=== PATIENT | female | born 1955 | race Caucasian/White ===

== ENCOUNTER 2016-09-24 11:06 | Emergency (ER) | payer MEDICAID ==
[2016-09-24] MEDS ORDERED: Ondansetron 4 MG Tab.DIS PO ONE (12:07)
[2016-09-24] MEDS ORDERED: Ibuprofen 200 MG Tab, 24 Tab Bulk Bottle PO STA (12:09)
--- NOTE | 2016-09-24 12:09 | EDM.PDOC ---
ED HPI GENERAL MEDICAL PROBLEM - General Chief Complaint: Genitourinary Problem Stated Complaint: FEVER/PAIN WITH URINATION Time Seen by Provider: 09/24/16 12:02 Source of Information: Reports: Patient, Family, RN Notes Reviewed History Limitations: Reports: No Limitations - History of Present Illness INITIAL COMMENTS - FREE TEXT/NARRATIVE: 61-year-old female presents emergency department day complaint of nausea and dysuria, she's also developed fever does have a history of urinary tract infection does complain of dysuria as well last urinary tract infection was several months ago, she states this feels a bit worse than prior UTIs Pelvic Pain Score (Numeric/FACES): 4 - Related Data Allergies Allergy/AdvReac Type Severity Reaction Status Date / Time aspirin Allergy Facial Verified 09/24/16 12:38 Swelling Home Meds: Home Meds . 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: Endometriosis Musculoskeletal History: Reports: Osteoporosis Endocrine/Metabolic History: Reports: Diabetes, Type II, Multinodular Thyroid, Obesity/BMI 30+ - Past Surgical History HEENT Surgical History: Reports: Tonsillectomy Cardiovascular Surgical History: Reports: Coronary Artery Bypass, Percutaneous Transluminal Angioplasty Other Cardiovascular Surgeries/Procedures: cabg x4 2014 GI Surgical History: Reports: Appendectomy, Cholecystectomy Female Surgical History: Reports: Hysterectomy, Lithotripsy/ESWL, Salpingo- Oophorectomy Social & Family History - Tobacco Use Smoking Status *Q: Never Smoker - Caffeine Use Caffeine Use: Reports: Coffee Caffeine Use Comment: 1 cup - Recreational Drug Use Recreational Drug Use: No ED ROS GENERAL - Review of Systems Review Of Systems: See Below Constitutional: Reports: Fever, Chills HEENT: Reports: No Symptoms Respiratory: Reports: No Symptoms Cardiovascular: Reports: No Symptoms GI/Abdominal: Reports: Nausea. Denies: Vomiting : Reports: Dysuria, Frequency. Denies: Flank Pain Musculoskeletal: Reports: No Symptoms ED EXAM, GI/ABD - Physical Exam Exam: See Below Exam Limited By: No Limitations General Appearance: Alert, Mild Distress Respiratory/Chest: No Respiratory Distress GI/Abdominal: Soft, Non-Tender Back Exam: No: CVA Tenderness (R), CVA Tenderness (L) Course - Vital Signs Last Recorded V/S: Last Vital Signs Temp 101.8 F H 09/24/16 13:26 Pulse 102 H 09/24/16 13:26 Resp 18 09/24/16 13:26 BP 134/81 09/24/16 13:26 Pulse Ox 93 L 09/24/16 13:26 - Orders/Labs/Meds Orders: Active Orders 24 hr Category Date Time Status Levofloxacin/Dextrose 5%-Water [Levaquin in D5W 750 MG/ Med 09/24/16 13:15 Active 150 ML] 750 mg Premix Bag 1 bag IV Q24H Medication Orders Levofloxacin/Dextrose 750 mg/ (Premix) 150 mls @ 100 mls/hr IV Q24H RODDY Last Admin: 09/24/16 13:20 Dose: 100 mls/hr Labs: Laboratory Tests 09/24/16 09/24/16 09/24/16 Range/Units 11:31 12:07 12:07 WBC 16.3 H (4.5-11.0) K/uL RBC 4.94 (3.30-5.50) M/uL Hgb 15.6 H (12.0-15.0) g/dL Hct 45.3 (36.0-48.0) % MCV 92 (80-98) fL MCH 32 H (27-31) pg MCHC 34 (32-36) % Plt Count 240 (150-400) K/uL Neut % (Auto) 76 H (36-66) % Lymph % (Auto) 12 L (24-44) % [place] % (Auto) 11 H (2-6) % Eos % (Auto) 0 L (2-4) % Baso % (Auto) 1 (0-1) % Sodium 139 L (140-148) mmol/L Potassium 4.4 (3.6-5.2) mmol/L Chloride 102 (100-108) mmol/L Carbon Dioxide 26 (21-32) mmol/L Anion Gap 15.4 H (5.0-14.0) mmol/L BUN 19 H (7-18) mg/dL Creatinine 1.3 H (0.6-1.0) mg/dL Est Cr Clr Drug Dosing 35.03 mL/min Estimated GFR (MDRD) 41 L (>60) Glucose 165 H (74-106) mg/dL Lactic Acid (0.4-2.0) mmol/L Calcium 9.6 (8.5-10.1) mg/dL Total Bilirubin 1.1 H (0.2-1.0) mg/dL AST 41 H (15-37) U/L ALT 71 (12-78) U/L Alkaline Phosphatase 81 (46-116) U/L C-Reactive Protein 3.32 H (0.0-0.3) mg/dL Total Protein 8.1 (6.4-8.2) g/dL Albumin 3.8 (3.4-5.0) g/dL Globulin 4.3 H (2.3-3.5) g/dL Albumin/Globulin Ratio 0.9 L (1.2-2.2) Urine Color Yellow Urine Appearance Cloudy Urine pH 7.0 (4.5-8.0) Ur Specific [place] 1.005 L (1.008-1.030) Urine Protein Trace (NEGATIVE) mg/dL Urine Glucose (UA) Normal (NEGATIVE) mg/dL Urine Ketones Negative (NEGATIVE) mg/dL Urine Occult Blood Large (NEGATIVE) Urine Nitrite Negative (NEGATIVE) Urine Bilirubin Negative (NEGATIVE) Urine Urobilinogen 1 (NORMAL) mg/dL Ur Leukocyte Esterase Large (NEGATIVE) Urine RBC 10-20 H (0-5) Urine WBC Packed H (0-5) Ur Epithelial Cells Few Amorphous Sediment Not seen Urine Bacteria Many Urine Mucus Not seen 09/24/16 Range/Units 12:07 WBC (4.5-11.0) K/uL RBC (3.30-5.50) M/uL Hgb (12.0-15.0) g/dL Hct (36.0-48.0) % MCV (80-98) fL MCH (27-31) pg MCHC (32-36) % Plt Count (150-400) K/uL Neut % (Auto) (36-66) % Lymph % (Auto) (24-44) % [place] % (Auto) (2-6) % Eos % (Auto) (2-4) % Baso % (Auto) (0-1) % Sodium (140-148) mmol/L Potassium (3.6-5.2) mmol/L Chloride (100-108) mmol/L Carbon Dioxide (21-32) mmol/L Anion Gap (5.0-14.0) mmol/L BUN (7-18) mg/dL Creatinine (0.6-1.0) mg/dL Est Cr Clr Drug Dosing mL/min Estimated GFR (MDRD) (>60) Glucose (74-106) mg/dL Lactic Acid 2.7 H (0.4-2.0) mmol/L Calcium (8.5-10.1) mg/dL Total Bilirubin (0.2-1.0) mg/dL AST (15-37) U/L ALT (12-78) U/L Alkaline Phosphatase (46-116) U/L C-Reactive Protein (0.0-0.3) mg/dL Total Protein (6.4-8.2) g/dL Albumin (3.4-5.0) g/dL Globulin (2.3-3.5) g/dL Albumin/Globulin Ratio (1.2-2.2) Urine Color Urine Appearance Urine pH (4.5-8.0) Ur Specific [place] (1.008-1.030) Urine Protein (NEGATIVE) mg/dL Urine Glucose (UA) (NEGATIVE) mg/dL Urine Ketones (NEGATIVE) mg/dL Urine Occult Blood (NEGATIVE) Urine Nitrite (NEGATIVE) Urine Bilirubin (NEGATIVE) Urine Urobilinogen (NORMAL) mg/dL Ur Leukocyte Esterase (NEGATIVE) Urine RBC (0-5) Urine WBC (0-5) Ur Epithelial Cells Amorphous Sediment Urine Bacteria Urine Mucus Meds: Medications Generic Name Dose Route Start Last Admin Trade Name Freq PRN Reason Stop Dose Admin Levofloxacin/Dextrose 750 mg/ 150 mls @ 100 mls/hr 09/24/16 13:15 09/24/16 13 :20 Premix IV 100 mls/hr Q24H RODDY Administration Discontinued Medications Generic Name Dose Route Start Last Admin Trade Name Freq PRN Reason Stop Dose Admin Ibuprofen 600 mg 09/24/16 12:09 Motrin Bulk Bottle PO 09/24/16 12:10 NOW STA Ibuprofen Confirm 09/24/16 12:32 Motrin Administered 09/24/16 12:33 Dose 600 mg .ROUTE .STK-MED ONE Ibuprofen 600 mg 09/24/16 12:34 09/24/16 12:36 Motrin PO 09/24/16 12:35 600 mg ONETIME ONE Administration Ondansetron HCl 4 mg 09/24/16 12:07 09/24/16 12:35 Zofran Odt PO 09/24/16 12:08 4 mg ONETIME ONE Administration Departure - Departure Time of Disposition: 14:14 Disposition: Home, Self-Care 01 Condition: Good Clinical Impression: UTI, Urinary tract infectious disease - Discharge Information Forms: ED Department Discharge Additional Instructions: Take full course of antibiotics, use Tylenol or Motrin to help control fever symptoms, Please followup with your primary care provider in 3-5 days if not better, please call return to the emergency department with worsening of symptoms. - My Orders Last 24 Hours: My Active Orders 09/24/16 13:15 Levofloxacin/Dextrose 5%-Water [Levaquin in D5W 750 MG/150 ML] 750 mg Premix Bag 1 bag IV Q24H - Assessment/Plan Last 24 Hours: My Active Orders 09/24/16 13:15 Levofloxacin/Dextrose 5%-Water [Levaquin in D5W 750 MG/150 ML] 750 mg Premix Bag 1 bag IV Q24H Plan: Assessment Acuity = acute Site and laterality = urinary tract infection concern for development of urosepsis Etiology = bacterial cause Manifestations = fever Location of injury = Home Lab values = WBC elevated at 16.3 consistent leukocytosis neutrophils at 76% sodium low at 139 consistent hyponatremia creatinine elevated at 1.3 consistent with acute renal failure stage G IIIB lactic acid elevated at 2.7 consistent lactic acidosis bilirubin mildly elevated 1.1 consistent hyperbilirubinemia C- reactive protein elevated 3.3 to urinalysis reveals 10-20 rbc's consistent hematuria and packed WBCs consistent with pyuria Plan I did review blood work with her elected to do IV dose of Levaquin initially followed by 10 days of Levaquin by mouth I talked her about hospital admission but she declined have her follow-up with her primary care provider upon return home if not better Patient was in agreement with the plan all questions were answered, they were instructed to return to the emergency department or call for worsening symptoms. This note was dictated using [employer] voice recognition software please call with any questions.
[2016-09-24] MEDS ORDERED: Ibuprofen 600 MG Tab ONE (12:32)
[2016-09-24] MEDS ORDERED: Ibuprofen 600 MG Tab PO ONE (12:34)
[2016-09-24] MEDS ORDERED: Levofloxacin/Dextrose 5%-Water 750 MG in Premix Bag 1 BAG IV SCH (13:15)
[2016-09-24 13:28] VITALS: BP 134/81
== END 2016-09-24 14:46 | disposition home or self-care (01) ==
LOC: JP.ED 11:06
DX: N39.0 Urinary tract infection, site not specified (principal); M19.90 Unspecified osteoarthritis, unspecified site; E11.9 Type 2 diabetes mellitus without complications; E66.9 Obesity, unspecified; Z88.6 Allergy status to analgesic agent; Z87.442 Personal history of urinary calculi; Z87.440 Personal history of urinary (tract) infections; Z95.1 Presence of aortocoronary bypass graft; Z98.890 Other specified postprocedural states; Z90.710 Acquired absence of both cervix and uterus; Z68.35 Body mass index [BMI] 35.0-35.9, adult
CPT/HCPCS: 36415; 80053; 81001; 83605; 85025; 86140; 96365; 96366; 99284; A9270; J1956

== ENCOUNTER 2016-09-25 13:15 | Inpatient (IN) | payer MEDICAID ==
[2016-09-25] MEDS ORDERED: Sodium Chloride 0.9% 10 ML Syringe FLUSH PRN (14:29)
[2016-09-25] MEDS ORDERED: Ketorolac 30 MG/ML SDV IVPUSH ONE (14:30)
[2016-09-25] MEDS ORDERED: Sodium Chloride 0.9% 1,000 ML IV SCH (14:30)
[2016-09-25] MEDS ORDERED: Acetaminophen 500 MG Tab PO ONE (14:31)
[2016-09-25] MEDS ORDERED: Piperacillin/Tazobactam 3.375 GM in Sodium Chloride 0.9% 50 ML IV ONE (14:34)
[2016-09-25] MEDS ORDERED: Piperacillin/Tazobactam/Dext 3.375 GM in Premix Bag 1 BAG IV ONE (14:45)
[2016-09-25] MEDS ORDERED: Ondansetron 4 MG/2 ML SDV IVPUSH ONE (14:58)
[2016-09-25] MEDS ORDERED: Acetaminophen 650 MG Supp RECTAL ONE (15:00)
[2016-09-25] MEDS ORDERED: Lactated Ringers 1,000 ML IV SCH (15:15)
--- NOTE | 2016-09-25 15:49 | PCM.HP ---
H&P History of Present Illness - General Date of Service: 09/25/16 Admit Problem/Dx: Admission Diagnosis/Problem Admission Diagnosis/Problem Acute cystitis Source of Information: Patient, Family, Provider History Limitations: Reports: No Limitations - History of Present Illness Initial Comments - Free Text/Narative: Drea presents to the emergency room today with ongoing dysuria as well as some lower abdominal pain. This mild lower abdominal pain has been present for approximately 2 weeks but has become progressively worse. Pain is achy and crampy in nature and radiates throughout her lower abdomen. Pain seems to come and go in waves with no obvious trigger. Acetaminophen has not provided much help to reduce the pain. She had noticed shaking chills at home as well as subjective fevers but had not had episodes of diaphoresis prior to being seen in the emergency room today. She was seen yesterday and given a dose of IV antibiotics before being discharged home per her request. She does not report chest pain or shortness of breath. She does endorse headache. She does not have an appetite or much energy and has not had much to eat or drink. She has had significant nausea. Workup in the emergency room revealed evidence for ongoing urinary tract infection with sepsis. She has received antibiotics and a 30 mL/kg bolus. She will be admitted to the intensive care unit. - Related Data Allergies/Adverse Reactions: Allergies Allergy/AdvReac Type Severity Reaction Status Date / Time aspirin Allergy Facial Verified 09/24/16 12:38 Swelling Home Medications: Home Meds Clopidogrel [Plavix] 75 mg PO DAILY 09/25/16 [History] Metoprolol Tartrate 25 mg PO BID 09/25/16 [History] Pravastatin [Pravachol] 10 mg PO DAILY 09/25/16 [History] glipiZIDE [Glucotrol] 5 mg PO DAILY 09/25/16 [History] metFORMIN HCl [Metformin HCl] 500 mg PO BID 09/25/16 [History] Past Medical History Cardiovascular History: Reports: CAD, High Cholesterol, Hypertension Gastrointestinal History: Reports: Cholelithiasis Genitourinary History: Reports: Renal Calculus, UTI, Recurrent 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: Endometriosis Musculoskeletal History: Reports: Osteoporosis Endocrine/Metabolic History: Reports: Diabetes, Type II, Multinodular Thyroid, Obesity/BMI 30+ - Infectious Disease History Infectious Disease History: Reports: Chicken Pox, Measles, Mumps - Past Surgical History HEENT Surgical History: Reports: Tonsillectomy Cardiovascular Surgical History: Reports: Coronary Artery Bypass, Percutaneous Transluminal Angioplasty Other Cardiovascular Surgeries/Procedures: cabg x4 2015 GI Surgical History: Reports: Appendectomy, Cholecystectomy Female Surgical History: Reports: Hysterectomy, Lithotripsy/ESWL, Salpingo- Oophorectomy Social & Family History - Family History Endocrine/Metabolic: Denies: Diabetes, type II - Tobacco Use Smoking Status *Q: Never Smoker - Caffeine Use Caffeine Use: Reports: Coffee Caffeine Use Comment: 1 cup - Alcohol Use Alcohol Use History: Yes Days Per Week of Alcohol Use: 1 - Recreational Drug Use Recreational Drug Use: No H&P Review of Systems - Review of Systems: Review Of Systems: See Below Free Text/Narrative: A complete 12 point review of systems was obtained. Pertinent positives and negatives are noted in the history of present illness. All other systems were reviewed and were negative except as noted. Exam - Exam Exam: See Below - Vital Signs Vital Signs: Last Vital Signs Temp 40.9 C H 09/25/16 14:34 Pulse 130 H 09/25/16 14:34 Resp 28 H 09/25/16 14:34 BP 186/51 H 09/25/16 14:34 Pulse Ox 96 09/25/16 14:34 Weight: 87.8 kg - Exam Quality Assessment: No: Supplemental Oxygen General: Alert, Oriented, Cooperative, Mild Distress, Other (diaphoretic) HEENT: Conjunctiva Clear. No: Mucosa Moist & [place] (dry), Scleral Icterus Neck: Supple, Trachea Midline. No: Thyromegaly Lungs: Clear to Auscultation, Normal Respiratory Effort Cardiovascular: Regular Rhythm, Tachycardia, Systolic Murmur Abdomen: Normal Bowel Sounds, Soft, Tenderness (mild suprapubic). No: Distention Back Exam: Normal Inspection, Full Range of Motion Extremities: Normal Inspection, Normal Pulses. No: Cyanosis, Edema Skin: Warm, Moist. No: Rash Neuro Extensive - Mental Status: Alert, Oriented x3, Nl Response to Commands Neuro Extensive - Motor, Sensory, Reflexes: CN II-XII Intact. No: Dysarthria, Abnormal Motor, Tremor Psychiatric: Alert, Normal Affect - Patient Data Lab Results Last 24 hrs: Laboratory Results - last 24 hr 09/25/16 Range/Units 15:10 WBC 5.9 (4.5-11.0) K/uL RBC 4.97 (3.30-5.50) M/uL Hgb 16.1 H (12.0-15.0) g/dL Hct 45.5 (36.0-48.0) % MCV 92 (80-98) fL MCH 32 H (27-31) pg MCHC 35 (32-36) % Plt Count 168 (150-400) K/uL Neut % (Auto) 71 H (36-66) % Lymph % (Auto) 25 (24-44) % [place] % (Auto) 2 (2-6) % Eos % (Auto) 1 L (2-4) % Baso % (Auto) 1 (0-1) % Result Diagrams: 09/25/16 15:10 09/25/16 15:11 *Q Meaningful Use (ADM) - VTE *Q VTE Criteria *Q: - VTE Risk Assess *Q Each Risk Factor Represents 1 Point: Obesity (BMI greater than 30), Sepsis, Less than 1 Month Total Score 1 Point Risk Factors: 2 Each Risk Factor Represents 2 Points: Age 60 - 74 Years Total Score 2 Point Risk Factors: 2 Each Risk Factor Represents 3 Points: None Total Score 3 Point Risk Factors: 0 Each Risk Factor Represents 5 Points: None Total Score 5 Point Risk Factors: 0 Venous Thromboembolism Risk Factor Score *Q: 4 - Stroke *Q Stroke Criteria *Q: - AMI *Q AMI Criteria *Q: - Problem List (1) Acute cystitis SNOMED Code(s): 28967442 ICD Code: N30.00 - ACUTE CYSTITIS WITHOUT HEMATURIA Status: Acute Current Visit: Yes Qualifiers: Hematuria presence: without hematuria Qualified Code(s): N30.00 - Acute cystitis without hematuria (2) Sepsis SNOMED Code(s): 42258199 ICD Code: A41.9 - SEPSIS, UNSPECIFIED ORGANISM Status: Acute Current Visit: Yes Qualifiers: Sepsis type: sepsis due to unspecified organism Qualified Code(s): A41.9 - Sepsis, unspecified organism (3) Type II diabetes mellitus SNOMED Code(s): 55833706 ICD Code: E11.9 - TYPE 2 DIABETES MELLITUS WITHOUT COMPLICATIONS Status: Chronic Current Visit: Yes Qualifiers: Diabetes mellitus complication status: with unspecified complications Diabetes mellitus jail insulin use: without jail use Qualified Code( s): E11.8 - Type 2 diabetes mellitus with unspecified complications (4) Acute kidney injury SNOMED Code(s): 67998311 ICD Code: N17.9 - ACUTE KIDNEY FAILURE, UNSPECIFIED Status: Acute Current Visit: Yes Problem List Initiated/Reviewed/Updated: Yes Orders Last 24hrs: Active Orders 24 hr Category Date Time Status Patient Status Manage Transfer [TRANSFER] Routine ADT 09/25/16 15:37 Ordered BASIC METABOLIC PANEL,BMP [CHEM] Urgent Lab 09/25/16 14:23 Ordered CULTURE BLOOD [BC] Urgent Lab 09/25/16 14:50 Received CULTURE BLOOD [BC] Urgent Lab 09/25/16 15:04 Received LACTIC ACID [CHEM] Stat Lab 09/25/16 14:23 Ordered UA W/MICROSCOPIC [URIN] Urgent Lab 09/25/16 14:23 Uncollected Lactated Ringers [Ringers, Lactated] 1,000 ml Med 09/25/16 15:15 Active IV ASDIRECTED Lactated Ringers [Ringers, Lactated] 1,000 ml Med 09/25/16 15:45 Ordered IV ASDIRECTED Sodium Chloride 0.9% [Normal Saline] 1,000 ml Med 09/25/16 14:30 Active IV ASDIRECTED Sodium Chloride 0.9% [Saline Flush] Med 09/25/16 14:29 Active 10 ml FLUSH ASDIRECTED PRN Blood Culture x2 Reflex Set [OM.PC] Urgent Oth 09/25/16 14:24 Ordered Saline Lock Insert [OM.PC] Urgent Oth 09/25/16 14:28 Ordered Resuscitation Status Routine Resus Stat 09/25/16 15:38 Ordered Medication Orders Sodium Chloride (Normal Saline) 1,000 mls @ 150 mls/hr IV ASDIRECTED RODDY Last Admin: 09/25/16 14:47 Dose: 150 mls/hr Lactated Ringer's (Ringers, Lactated) 1,000 mls @ 999 mls/hr IV ASDIRECTED RODDY Last Admin: 09/25/16 15:06 Dose: 999 mls/hr Lactated Ringer's (Ringers, Lactated) 1,000 mls @ 999 mls/hr IV ASDIRECTED RODDY Stop: 09/25/16 17:46 Sodium Chloride (Saline Flush) 10 ml FLUSH ASDIRECTED PRN PRN Reason: Keep Vein Open Last Admin: 09/25/16 14:50 Dose: 10 ml Assessment/Plan Comment:: Assessment and plan - Sepsis syndrome secondary to acute cystitis - evidence for sepsis includes tachycardia, tachypnea, lactic acidosis and acute kidney injury. Ongoing evidence for urinary tract infection with significant urinalysis abnormalities and symptoms. She does have a history of recurrent infections but has not had any in some months. She does have a history of kidney stones but does not currently have symptoms to suggest active kidney stones. she has received antibiotics and a 30 mL/kg bolus of IV fluids. Cultures have been obtained. -Pip/Tazo -IV fluids -repeat lactic acid level -Follow-up urine culture -Pain and nausea control -follow-up blood cultures Acute kidney injury - secondary to sepsis. -Management as above -Labs in the morning Diabetes mellitus type 2 - on only oral medications at this time. Blood sugars controlled by history. usual medications will be held given abnormal kidney function. -Hold metformin and glipizide -Sliding-scale insulin Dssential hypertension - blood pressure normal to mildly elevated in the emergency room but I would not be surprised if her pressures decline after the initial resuscitation. Planning to hold usual medications until we see which direction her blood pressure goes. Maintenance issues - - DVT prophylaxis - mechanical - GI prophylaxis - PPI - Nutrition - diabetic diet - Lawrence catheter - not indicated CODE STATUS - full code Admission justification - This patient will be admitted for inpatient services and is medically appropriate meeting medical necessity for inpatient admission as outlined in my documentation. I reasonably expect the patient will require inpatient services that span a period time over 2 midnights. I reasonably expect this patient to be discharged or transferred within 96 hours [facility]. Disposition - anticipate discharge to home after the hospital stay Primary care physician - Keeley Marin M.D.
--- NOTE | 2016-09-25 15:59 | EDM.PDOC ---
ED HPI GENERAL MEDICAL PROBLEM - General Chief Complaint: Genitourinary Problem Stated Complaint: FEVER/NOT GETTING BETTER Time Seen by Provider: 09/25/16 14:23 Source of Information: Reports: Patient, Family, Provider History Limitations: Reports: No Limitations - History of Present Illness INITIAL COMMENTS - FREE TEXT/NARRATIVE: This lady was seen in the emergency department yesterday for pyelonephritis she was given Levaquin IV followed by an oral Levaquin. She had low-grade fever at the time today she's got worse her temperatures going up she's having shaking chills. - Related Data Allergies Allergy/AdvReac Type Severity Reaction Status Date / Time aspirin Allergy Facial Verified 09/24/16 12:38 Swelling Home Meds: Home Meds Clopidogrel [Plavix] 75 mg PO DAILY 09/25/16 [History] Metoprolol Tartrate 25 mg PO BID 09/25/16 [History] Pravastatin [Pravachol] 10 mg PO DAILY 09/25/16 [History] glipiZIDE [Glucotrol] 5 mg PO DAILY 09/25/16 [History] metFORMIN HCl [Metformin HCl] 500 mg PO BID 09/25/16 [History] Past Medical History Cardiovascular History: Reports: CAD, High Cholesterol, Hypertension Gastrointestinal History: Reports: Cholelithiasis Genitourinary History: Reports: Renal Calculus, UTI, Recurrent [employer] History: Reports: Endometriosis Musculoskeletal History: Reports: Osteoporosis Endocrine/Metabolic History: Reports: Diabetes, Type II, Multinodular Thyroid, Obesity/BMI 30+ - Infectious Disease History Infectious Disease History: Reports: Chicken Pox, Measles, Mumps - Past Surgical History HEENT Surgical History: Reports: Tonsillectomy Cardiovascular Surgical History: Reports: Coronary Artery Bypass, Percutaneous Transluminal Angioplasty Other Cardiovascular Surgeries/Procedures: cabg x4 2015 GI Surgical History: Reports: Appendectomy, Cholecystectomy Female Surgical History: Reports: Hysterectomy, Lithotripsy/ESWL, Salpingo- Oophorectomy Social & Family History - Family History Endocrine/Metabolic: Denies: Diabetes, type II - Tobacco Use Smoking Status *Q: Never Smoker - Caffeine Use Caffeine Use: Reports: Coffee Caffeine Use Comment: 1 cup - Alcohol Use Days Per Week of Alcohol Use: 1 - Recreational Drug Use Recreational Drug Use: No ED ROS GENERAL - Review of Systems Review Of Systems: ROS reveals no pertinent complaints other than HPI. ED EXAM, GI/ABD - Physical Exam Exam: See Below Exam Limited By: No Limitations General Appearance: Alert, Moderate Distress (This lady is having severe rigors) , Obese Eyes: Bilateral: Normal Appearance Respiratory/Chest: Lungs Clear Cardiovascular: Regular Rate, Rhythm GI/Abdominal: Non-Tender Back Exam: Other (did not test for CVA tenderness) Extremities: Normal Inspection ( since lady was so uncomfortable) Neurological: Alert, Oriented Psychiatric: Normal Affect Skin Exam: Warm, Dry Course - Vital Signs Last Recorded V/S: Last Vital Signs Temp 39.7 C H 09/25/16 15:44 Pulse 107 H 09/25/16 15:44 Resp 28 H 09/25/16 14:34 BP 113/66 09/25/16 15:44 Pulse Ox 94 L 09/25/16 15:44 - Orders/Labs/Meds Orders: Active Orders 24 hr Category Date Time Status Patient Status Manage Transfer [TRANSFER] Routine ADT 09/25/16 15:37 Active CULTURE BLOOD [BC] Urgent Lab 09/25/16 14:50 Received CULTURE BLOOD [BC] Urgent Lab 09/25/16 15:04 Received UA W/MICROSCOPIC [URIN] Urgent Lab 09/25/16 14:23 Uncollected Lactated Ringers [Ringers, Lactated] 1,000 ml Med 09/25/16 15:15 Active IV ASDIRECTED Lactated Ringers [Ringers, Lactated] 1,000 ml Med 09/25/16 15:45 Ordered IV ASDIRECTED Sodium Chloride 0.9% [Normal Saline] 1,000 ml Med 09/25/16 14:30 Active IV ASDIRECTED Sodium Chloride 0.9% [Saline Flush] Med 09/25/16 14:29 Active 10 ml FLUSH ASDIRECTED PRN Blood Culture x2 Reflex Set [OM.PC] Urgent Oth 09/25/16 14:24 Ordered Saline Lock Insert [OM.PC] Urgent Oth 09/25/16 14:28 Ordered Resuscitation Status Routine Resus Stat 09/25/16 15:38 Ordered Medication Orders Sodium Chloride (Normal Saline) 1,000 mls @ 150 mls/hr IV ASDIRECTED RODDY Last Admin: 09/25/16 14:47 Dose: 150 mls/hr Lactated Ringer's (Ringers, Lactated) 1,000 mls @ 999 mls/hr IV ASDIRECTED RODDY Last Admin: 09/25/16 15:06 Dose: 999 mls/hr Lactated Ringer's (Ringers, Lactated) 1,000 mls @ 999 mls/hr IV ASDIRECTED RODDY Stop: 09/25/16 17:46 Sodium Chloride (Saline Flush) 10 ml FLUSH ASDIRECTED PRN PRN Reason: Keep Vein Open Last Admin: 09/25/16 14:50 Dose: 10 ml Labs: Laboratory Tests 09/25/16 09/25/16 09/25/16 Range/Units 15:10 15:11 15:11 WBC 5.9 (4.5-11.0) K/uL RBC 4.97 (3.30-5.50) M/uL Hgb 16.1 H (12.0-15.0) g/dL Hct 45.5 (36.0-48.0) % MCV 92 (80-98) fL MCH 32 H (27-31) pg MCHC 35 (32-36) % Plt Count 168 (150-400) K/uL Neut % (Auto) 71 H (36-66) % Lymph % (Auto) 25 (24-44) % [place] % (Auto) 2 (2-6) % Eos % (Auto) 1 L (2-4) % Baso % (Auto) 1 (0-1) % Sodium 138 L (140-148) mmol/L Potassium 4.1 (3.6-5.2) mmol/L Chloride 102 (100-108) mmol/L Carbon Dioxide 18 L (21-32) mmol/L Anion Gap 22.1 H (5.0-14.0) mmol/L BUN 31 H D (7-18) mg/dL Creatinine 1.9 H (0.6-1.0) mg/dL Est Cr Clr Drug Dosing 23.97 mL/min Estimated GFR (MDRD) 27 L (>60) Glucose 140 H (74-106) mg/dL Lactic Acid 6.7 H (0.4-2.0) mmol/L Calcium 9.4 (8.5-10.1) mg/dL Meds: Medications Generic Name Dose Route Start Last Admin Trade Name Freq PRN Reason Stop Dose Admin Sodium Chloride 1,000 mls @ 150 mls/hr 09/25/16 14:30 09/25/16 14:47 Normal Saline IV 150 mls/hr ASDIRECTED RODDY Administration Lactated Ringer's 1,000 mls @ 999 mls/hr 09/25/16 15:15 09/25/16 15:06 Ringers, Lactated IV 999 mls/hr ASDIRECTED RODDY Administration Lactated Ringer's 1,000 mls @ 999 mls/hr 09/25/16 15:45 Ringers, Lactated IV 09/25/16 17:46 ASDIRECTED RODDY Sodium Chloride 10 ml 09/25/16 14:29 09/25/16 14:50 Saline Flush FLUSH 10 ml ASDIRECTED PRN Administration Keep Vein Open Discontinued Medications Generic Name Dose Route Start Last Admin Trade Name Lan PRN Reason Stop Dose Admin Acetaminophen 1,000 mg 09/25/16 14:31 09/25/16 14:38 Tylenol Extra Strength PO 09/25/16 14:32 1,000 mg ONETIME ONE Administration Acetaminophen 650 mg 09/25/16 15:00 09/25/16 15:08 Tylenol RECTAL 09/25/16 15:01 650 mg NOW ONE Administration Piperacillin/Tazobactam/ 50 mls @ 100 mls/hr 09/25/16 14:45 09/25/16 14:56 Dextrose 3.375 gm/ Premix IV 09/25/16 15:14 100 mls/hr ONETIME ONE Administration Ketorolac Tromethamine 30 mg 09/25/16 14:30 09/25/16 14:44 Toradol IVPUSH 09/25/16 14:31 30 mg ONETIME ONE Administration Ondansetron HCl 4 mg 09/25/16 14:58 09/25/16 15:05 Zofran IVPUSH 09/25/16 14:59 4 mg ONETIME ONE Administration - Re-Assessments/Exams Free Text/Narrative Re-Assessment/Exam: 09/25/16 15:57 This patient's temperature had suddenly gone up to about 105. She was having severe rigors. An IV was established. She was given Toradol 30 mg IV and initially Tylenol 1000 mg orally however she vomited this up she did receive Zofran 4 mg IV and Tylenol 650 mg suppository. Labs and blood cultures have been done. Dr. Marin was contacted and requested that I start her on some Zosyn 3.75 mg IV. He arrived a short while later in the emergency department to admit the patient. There appeared to be no cultures pending on this patient Departure - Departure Time of Disposition: 15:58 Disposition: Admitted As Inpatient 64 Clinical Impression: Sepsis, Pyelonephritis - Discharge Information Forms: ED Department Discharge - My Orders Last 24 Hours: My Active Orders 09/25/16 14:23 UA W/MICROSCOPIC [URIN] Urgent 09/25/16 14:24 Blood Culture x2 Reflex Set [OM.PC] Urgent 09/25/16 14:28 Saline Lock Insert [OM.PC] Urgent 09/25/16 14:29 Sodium Chloride 0.9% [Saline Flush] 10 ml FLUSH ASDIRECTED PRN 09/25/16 14:30 Sodium Chloride 0.9% [Normal Saline] 1,000 ml IV ASDIRECTED 09/25/16 14:50 CULTURE BLOOD [BC] Urgent 09/25/16 15:04 CULTURE BLOOD [BC] Urgent - Assessment/Plan Last 24 Hours: My Active Orders 09/25/16 14:23 UA W/MICROSCOPIC [URIN] Urgent 09/25/16 14:24 Blood Culture x2 Reflex Set [OM.PC] Urgent 09/25/16 14:28 Saline Lock Insert [OM.PC] Urgent 09/25/16 14:29 Sodium Chloride 0.9% [Saline Flush] 10 ml FLUSH ASDIRECTED PRN 09/25/16 14:30 Sodium Chloride 0.9% [Normal Saline] 1,000 ml IV ASDIRECTED 09/25/16 14:50 CULTURE BLOOD [BC] Urgent 09/25/16 15:04 CULTURE BLOOD [BC] Urgent
[2016-09-25] MEDS ORDERED: Polyethylene Glycol 3350 Powder 17 GM Packet PO PRN (16:12)
[2016-09-25] MEDS ORDERED: Ondansetron 4 MG/2 ML SDV IV PRN (16:12)
[2016-09-25] MEDS ORDERED: Ondansetron 4 MG Tab.DIS PO PRN (16:12)
[2016-09-25] MEDS ORDERED: Pantoprazole 40 MG Vial IV ONE (16:30)
[2016-09-25] MEDS: Lactated Ringers 1,000 ML IV SCH ×2 (16:47→17:31)
[2016-09-25] MEDS: Acetaminophen 325 MG Tab PO PRN (16:50)
[2016-09-25] MEDS: Insulin Aspart 100 Units/ML 3 ML Pen SUBCUT SCH ×2 (17:54→22:03)
[2016-09-25] MEDS: Sodium Chloride 0.9% 1,000 ML IV SCH (18:27)
[2016-09-25] MEDS ORDERED: Piperacillin/Tazobactam 3.375 GM in Sodium Chloride 0.9% 50 ML IV SCH (20:00)
[2016-09-25] MEDS ORDERED: Ketorolac 30 MG/ML SDV IM PRN (20:30)
[2016-09-25] MEDS: Piperacillin/Tazobactam/Dext 3.375 GM in Premix Bag 1 BAG IV SCH (22:02)
[2016-09-26] MEDS: Sodium Chloride 0.9% 1,000 ML IV SCH (02:56)
[2016-09-26] MEDS: Piperacillin/Tazobactam/Dext 3.375 GM in Premix Bag 1 BAG IV SCH ×2 (03:01→09:23)
[2016-09-26] MEDS ORDERED: Pantoprazole 40 MG Tab.CR PO SCH (07:30)
[2016-09-26] MEDS: Acetaminophen 325 MG Tab PO PRN (08:14)
--- NOTE | 2016-09-26 08:43 | PCM.PN ---
- General Info Date of Service: 09/26/16 Functional Status: Reports: pain controlled, tolerating diet, ambulating - Review of Systems General: Reports: Fever, Weakness Gastrointestinal: Denies: Abdominal pain - Patient Data Vitals - most recent: Last Vital Signs Temp 39.4 C H 09/26/16 08:14 Pulse 97 09/25/16 18:00 Resp 19 09/26/16 06:00 BP 111/44 L 09/26/16 06:00 Pulse Ox 94 L 09/26/16 04:00 Weight - most recent: 87.8 kg I&O - last 24 hours: Intake & Output 09/25/16 09/26/16 09/26/16 22:59 06:59 14:59 Intake Total 3300 1349 Output Total 445 600 Balance 5800 749 Lab Results last 24 hrs: Laboratory Results - last 24 hr 09/25/16 09/25/16 09/26/16 Range/Units 16:55 19:10 04:30 WBC 12.8 H (4.5-11.0) K/uL RBC 4.11 (3.30-5.50) M/uL Hgb 13.0 D (12.0-15.0) g/dL Hct 38.4 (36.0-48.0) % MCV 93 (80-98) fL MCH 32 H (27-31) pg MCHC 34 (32-36) % Plt Count 141 L (150-400) K/uL Sodium (140-148) mmol/L Potassium (3.6-5.2) mmol/L Chloride (100-108) mmol/L Carbon Dioxide (21-32) mmol/L Anion Gap (5.0-14.0) mmol/L BUN (7-18) mg/dL Creatinine (0.6-1.0) mg/dL Est Cr Clr Drug Dosing mL/min Estimated GFR (MDRD) (>60) Glucose (74-106) mg/dL Lactic Acid 4.5 H (0.4-2.0) mmol/L Calcium (8.5-10.1) mg/dL Urine Color Yellow Urine Appearance Turbid Urine pH 5.0 (4.5-8.0) Ur Specific [place] 1.015 (1.008-1.030) Urine Protein 30 H (NEGATIVE) mg/dL Urine Glucose (UA) Normal (NEGATIVE) mg/dL Urine Ketones Negative (NEGATIVE) mg/dL Urine Occult Blood Large (NEGATIVE) Urine Nitrite Negative (NEGATIVE) Urine Bilirubin Negative (NEGATIVE) Urine Urobilinogen Normal (NORMAL) mg/dL Ur Leukocyte Esterase Large (NEGATIVE) Urine RBC 5-10 H (0-5) Urine WBC >100 H (0-5) Ur Epithelial Cells Moderate Amorphous Sediment Moderate Urine Bacteria Many Urine Mucus Not seen 09/26/16 09/26/16 Range/Units 04:30 04:30 WBC (4.5-11.0) K/uL RBC (3.30-5.50) M/uL Hgb (12.0-15.0) g/dL Hct (36.0-48.0) % MCV (80-98) fL MCH (27-31) pg MCHC (32-36) % Plt Count (150-400) K/uL Sodium 144 (140-148) mmol/L Potassium 4.2 (3.6-5.2) mmol/L Chloride 109 H (100-108) mmol/L Carbon Dioxide 27 (21-32) mmol/L Anion Gap 12.2 (5.0-14.0) mmol/L BUN 32 H (7-18) mg/dL Creatinine 1.6 H (0.6-1.0) mg/dL Est Cr Clr Drug Dosing 28.46 mL/min Estimated GFR (MDRD) 33 L (>60) Glucose 102 (74-106) mg/dL Lactic Acid 1.6 (0.4-2.0) mmol/L Calcium 8.5 (8.5-10.1) mg/dL Urine Color Urine Appearance Urine pH (4.5-8.0) Ur Specific [place] (1.008-1.030) Urine Protein (NEGATIVE) mg/dL Urine Glucose (UA) (NEGATIVE) mg/dL Urine Ketones (NEGATIVE) mg/dL Urine Occult Blood (NEGATIVE) Urine Nitrite (NEGATIVE) Urine Bilirubin (NEGATIVE) Urine Urobilinogen (NORMAL) mg/dL Ur Leukocyte Esterase (NEGATIVE) Urine RBC (0-5) Urine WBC (0-5) Ur Epithelial Cells Amorphous Sediment Urine Bacteria Urine Mucus Med Orders - Current: Current Medications Acetaminophen (Tylenol) 650 mg PO Q4H PRN PRN Reason: Pain (Mild 1-3)/fever Last Admin: 09/26/16 08:14 Dose: 650 mg Clopidogrel Bisulfate (Plavix) 75 mg PO DAILY [facility] Sodium Chloride (Normal Saline) 1,000 mls @ 125 mls/hr IV ASDIRECTED [facility] Last Admin: 09/26/16 02:56 Dose: 125 mls/hr Piperacillin/Tazobactam/ (Dextrose 3.375 gm/ Premix) 50 mls @ 100 mls/hr IV Q6H [facility] Last Admin: 09/26/16 03:01 Dose: 100 mls/hr Insulin Aspart (Novolog) 0 unit SUBCUT WITHMEALSANDBED [facility] PRN Reason: Protocol Last Admin: 09/25/16 22:03 Dose: 2 units Ketorolac Tromethamine (Toradol) 30 mg IM Q6H PRN PRN Reason: Pain/Fever Last Admin: 09/26/16 08:14 Dose: 30 mg Ondansetron HCl (Zofran Odt) 4 mg PO Q6H PRN PRN Reason: Nausea able to take PO Ondansetron HCl (Zofran) 4 mg IV Q6H PRN PRN Reason: Nausea/Vomiting Pantoprazole Sodium (Protonix) 40 mg PO ACBREAKFAST [facility] Polyethylene Glycol (Miralax) 17 gm PO DAILY PRN PRN Reason: Constipation Senna/Docusate Sodium (Senna Plus) 1 tab PO BID PRN PRN Reason: Constipation Sodium Chloride (Saline Flush) 10 ml FLUSH ASDIRECTED PRN PRN Reason: Keep Vein Open Last Admin: 09/25/16 14:50 Dose: 10 ml Discontinued Medications Acetaminophen (Tylenol Extra Strength) 1,000 mg PO ONETIME ONE Stop: 09/25/16 14:32 Last Admin: 09/25/16 14:38 Dose: 1,000 mg Acetaminophen (Tylenol) 650 mg RECTAL NOW ONE Stop: 09/25/16 15:01 Last Admin: 09/25/16 15:08 Dose: 650 mg Sodium Chloride (Normal Saline) 1,000 mls @ 150 mls/hr IV ASDIRECTED [facility] Last Admin: 09/25/16 14:47 Dose: 150 mls/hr Piperacillin/Tazobactam/ (Dextrose 3.375 gm/ Premix) 50 mls @ 100 mls/hr IV ONETIME ONE Stop: 09/25/16 15:14 Last Admin: 09/25/16 14:56 Dose: 100 mls/hr Lactated Ringer's (Ringers, Lactated) 1,000 mls @ 999 mls/hr IV ASDIRECTED [facility] Last Admin: 09/25/16 15:06 Dose: 999 mls/hr Lactated Ringer's (Ringers, Lactated) 1,000 mls @ 999 mls/hr IV ASDIRECTED [facility] Stop: 09/25/16 17:46 Last Admin: 09/25/16 17:31 Dose: 999 mls/hr Ketorolac Tromethamine (Toradol) 30 mg IVPUSH ONETIME ONE Stop: 09/25/16 14:31 Last Admin: 09/25/16 14:44 Dose: 30 mg Ondansetron HCl (Zofran) 4 mg IVPUSH ONETIME ONE Stop: 09/25/16 14:59 Last Admin: 09/25/16 15:05 Dose: 4 mg Pantoprazole Sodium (Protonix Iv) 40 mg IV ONETIME ONE Stop: 09/25/16 16:31 Last Admin: 09/25/16 16:51 Dose: 40 mg - Exam Quality Assessment: No: supplemental oxygen General: alert, oriented, cooperative, mild distress Neck: supple, trachea midline Lungs: Clear to auscultation, Normal respiratory effort Cardiovascular: Regular Rate, Regular Rhythm Abdomen: bowel sounds present, soft, no distension, tenderness (mild suprapubic) Extremities: no edema, no cyanosis Skin: warm, dry Psy/Mental Status: alert, normal affect - Problem List & Annotations (1) Acute cystitis SNOMED Code(s): 54108969 Code(s): N30.00 - ACUTE CYSTITIS WITHOUT HEMATURIA Status: Acute Current Visit: Yes Qualifiers: Hematuria presence: without hematuria Qualified Code(s): N30.00 - Acute cystitis without hematuria (2) Sepsis SNOMED Code(s): 35068103 Code(s): A41.9 - SEPSIS, UNSPECIFIED ORGANISM Status: Acute Current Visit : Yes Qualifiers: Sepsis type: sepsis due to unspecified organism Qualified Code(s): A41.9 - Sepsis, unspecified organism (3) Type II diabetes mellitus SNOMED Code(s): 92459314 Code(s): E11.9 - TYPE 2 DIABETES MELLITUS WITHOUT COMPLICATIONS Status: Chronic Current Visit: Yes Qualifiers: Diabetes mellitus complication status: with unspecified complications 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 insulin 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: without group home use Qualified Code( s): E11.8 - Type 2 diabetes mellitus with unspecified complications (4) Acute kidney injury SNOMED Code(s): 51042156 Code(s): N17.9 - ACUTE KIDNEY FAILURE, UNSPECIFIED Status: Acute Current Visit: Yes - My Orders Last 24 Hours: My Active Orders 09/25/16 15:38 Resuscitation Status Routine 09/25/16 16:12 Patient Status [ADT] Routine Bedrest Bathroom Privileges [RC] ASDIRECTED Blood Glucose Check, Bedside [RC] WITHMEALSANDBED Cardiac Monitoring [RC] Q6H Communication Order [RC] PRN Communication Order [RC] PRN Diabetes Education [RC] Click to Edit Intake and Output [RC] QSHIFT Notify Provider Vital Signs [RC] ASDIRECTED Notify Provider [RC] PRN Oxygen Therapy [RC] PRN Pulse Oximetry [RC] CONTINUOUS VTE/DVT Education [RC] Per Unit Routine Vital Signs [RC] Q2HR Acetaminophen [Tylenol] 650 mg PO Q4H PRN Docusate Sodium/Sennosides [Senna Plus] 1 tab PO BID PRN Ondansetron [Zofran ODT] 4 mg PO Q6H PRN Ondansetron [Zofran] 4 mg IV Q6H PRN Polyethylene Glycol 3350 [MiraLAX] 17 gm PO DAILY PRN Sequential Compression Device [OM.PC] Per Unit Routine 09/25/16 16:55 CULTURE URINE [RM] Routine 09/25/16 17:00 Insulin Aspart [NovoLOG] See Protocol SUBCUT WITHMEALSANDBED 09/25/16 17:45 Sodium Chloride 0.9% [Normal Saline] 1,000 ml IV ASDIRECTED 09/25/16 20:30 Ketorolac [Toradol] 30 mg IM Q6H PRN 09/25/16 21:00 Piperacillin/Tazobactam/Dext [Zosyn in Dextrose Iso-Osmotic 3.375 GM] 3.375 gm Premix Bag 1 bag IV Q6H 09/25/16 Dinner Consistent Carbohydrate Diet [DIET] 09/26/16 07:30 Pantoprazole [ProTONIX] 40 mg PO ACBREAKFAST 09/26/16 08:40 Abdomen Pelvis wo Cont [CT] Routine 09/27/16 05:00 BASIC METABOLIC PANEL,BMP [CHEM] Timed CBC W/O DIFF,HEMOGRAM [HEME] Timed (1) - Plan Plan:: Assessment and plan - Sepsis syndrome secondary to acute cystitis - evidence for sepsis includes tachycardia, tachypnea, lactic acidosis and acute kidney injury. Ongoing evidence for urinary tract infection with significant urinalysis abnormalities and symptoms. She does have a history of recurrent infections but has not had any in some months. She does have a history of kidney stones but does not currently have symptoms to suggest active kidney stones. she has received antibiotics and a 30 mL/kg bolus of IV fluids. Cultures have been obtained. -Pip/Tazo -IV fluids -repeat lactic acid level -Follow-up urine culture -Pain and nausea control -follow-up blood cultures Acute kidney injury - secondary to sepsis. -Management as above -Labs in the morning Diabetes mellitus type 2 - on only oral medications at this time. Blood sugars controlled by history. usual medications will be held given abnormal kidney function. -Hold metformin and glipizide -Sliding-scale insulin Dssential hypertension - blood pressure normal to mildly elevated in the emergency room but I would not be surprised if her pressures decline after the initial resuscitation. Planning to hold usual medications until we see which direction her blood pressure goes. Maintenance issues - - DVT prophylaxis - mechanical - GI prophylaxis - PPI - Nutrition - diabetic diet - Lawrence catheter - not indicated CODE STATUS - full code Admission justification - This patient will be admitted for inpatient services and is medically appropriate meeting medical necessity for inpatient admission as outlined in my documentation. I reasonably expect the patient will require inpatient services that span a period time over 2 midnights. I reasonably expect this patient to be discharged or transferred within 96 hours after admission to the [facility]. Disposition - anticipate discharge to home after the hospital stay Primary care physician - Keeley Marin M.D.
[2016-09-26] MEDS ORDERED: Clopidogrel 75 MG Tab PO SCH (09:00)
[2016-09-26] MEDS: Insulin Aspart 100 Units/ML 3 ML Pen SUBCUT SCH (09:10)
[2016-09-26 10:01] VITALS: BP 111/54
--- NOTE | 2016-09-26 10:01 | CT ---
CT abdomen and pelvis. Indication: History of stones. Findings: No focal consolidation. Gallbladder clips. Fatty infiltration of the liver. Adrenal glands are within normal limits. A few calcifications about the pancreas. No fluid collection. Spleen with in normal limits. There is perinephric fat stranding about both kidneys. Numerous calyceal tip stone s which appears small within both kidneys. There is mild right hydronephrosis. 5 mm stone within the right proximal ureter. Mild left hydronephrosis. Mild left hydroureter. 5 mm stone within the mid t o distal left ureter. Large amount of fecal residual. No dilated loops of small bowel. Impression: 1. Mild hydronephrosis both kidneys with obstructing stones both kidneys. Numerous calyceal tip ston es both kidneys. 2. Large amount of fecal residual.
--- NOTE | 2016-09-26 10:40 | PCM.DCSUM1 ---
Discharge Summary - Hospital Course Brief History: 61-year-old female with [id number] diabetes, coronary artery disease status post four-vessel CABG in 2014 and history of kidney stones who presented with dysuria, fevers and was admitted for management of sepsis secondary to a urinary tract infection. - Discharge Data Discharge Date: 09/26/16 Discharge Disposition: DC/Tfer to [facility] Condition: Serious - Discharge Diagnosis/Problem(s) (1) Acute cystitis SNOMED Code(s): 59308199 ICD Code: N30.00 - ACUTE CYSTITIS WITHOUT HEMATURIA Status: Acute Current Visit: Yes Qualifiers: Hematuria presence: without hematuria Qualified Code(s): N30.00 - Acute cystitis without hematuria (2) Sepsis SNOMED Code(s): 22429887 ICD Code: A41.9 - SEPSIS, UNSPECIFIED ORGANISM Status: Acute Current Visit: Yes Qualifiers: Sepsis type: sepsis due to unspecified organism Qualified Code(s): A41.9 - Sepsis, unspecified organism (3) Type II diabetes mellitus SNOMED Code(s): 93021095 ICD Code: E11.9 - TYPE 2 DIABETES MELLITUS WITHOUT COMPLICATIONS Status: Chronic Current Visit: Yes Qualifiers: Diabetes mellitus complication status: with unspecified complications Diabetes mellitus manager intermediate insulin use: without manager intermediate use Qualified Code( s): E11.8 - Type 2 diabetes mellitus with unspecified complications (4) Acute kidney injury SNOMED Code(s): 99895506 ICD Code: N17.9 - ACUTE KIDNEY FAILURE, UNSPECIFIED Status: Acute Current Visit: Yes - Patient Summary/Data Labs Pending at D/C: Urine culture is pending with no results available at the time of discharge Aerobic bottles from 2 sets of blood cultures are growing gram negative rods at the time of discharge, identification and sensitivities are pending Hospital Course: Drea presented to the emergency room initially on 09/24/2016 with fevers and dysuria. Workup in the emergency room was suggestive of mild sepsis and urinary tract infection. She was given IV fluids and IV antibiotics but was not interested in hospital admission at that time. She represented to the emergency room on 09/25 with worsening symptoms of dysuria, high fevers and nausea. Workup in the emergency room suggested ongoing sepsis with hypotension, tachypnea, acute kidney injury with a creatinine of 1.9 and lactic acidosis with a lactic acid of 6.7. In the emergency room she received a dose of Pip/Tazo, a fluid bolus of 30 mL/kg and cultures were obtained. She was admitted to the intensive care unit for close monitoring and ongoing volume resuscitation. We did elect to continue the Pip/Tazo.repeat lactic acid level hours after triage was down to 4.5. Heart rate had been improving and blood pressures had dropped down to the low normal range. Overnight her symptoms of nausea as well as some suprapubic abdominal pain did improve. Her heart rate normalized and blood pressures started to rise to above 100. Repeat lactic acid level the morning after admission is down to 1.6. She does have 2 blood cultures that became positive early in the morning after admission. These are growing gram-negative rods at the time of discharge but identification is pending. The morning after admission she spiked another fever to greater than 39. With her history of kidney stones I became suspicious that she may have an obstructing stone causing difficulties though she did not have much in the way of abdominal pain. Her creatinine has improved from 1.9 down to 1.6. White blood cell count was initially in the normal range but has risen to 12. Electrolytes are acceptable at this time. The noncontrast CT scan did show evidence for bilateral obstructing stones with mild to moderate hydronephrosis. The stones are both approximately 5 mm in size. The stone on the right is in the proximal ureter and the stone in the left is in the distal two thirds of the ureter. Given her sepsis and bilateral obstructing ureteral stones I believe she would benefit from a higher level of care and urology consultation and treatment. I spoke with Dr. Burns at [facility] in [place] and he was graciously agreeable to accept her care in transfer. She will be transferred via ambulance to [facility] for admission and additional consultation and management. I will contact the on-call service in the morning once microbiology results are available. - Patient Instructions Diet: NPO Activity: Bedrest, May Use Bathroom, No Strenuous Activities Driving: Do Not Drive Notify Provider of: Fever, Increased Pain, Nausea and/or Vomiting Other/Special Instructions: 1. Transfer to [facility] in [place] - diagnosis complicated urinary tract infection, sepsis, bilateral obstructing ureterolithiasis with hydronephrosis. 2. Dr Burns accepting Hospitalist - Discharge Plan Home Medications: Home Meds Clopidogrel [Plavix] 75 mg PO DAILY 09/25/16 [History] Metoprolol Tartrate 25 mg PO BID 09/25/16 [History] Pravastatin [Pravachol] 10 mg PO DAILY 09/25/16 [History] glipiZIDE [Glucotrol] 5 mg PO DAILY 09/25/16 [History] metFORMIN HCl [Metformin HCl] 500 mg PO BID 09/25/16 [History] Patient Handouts: Urosepsis Referrals: PCP,None [Primary Care Provider] - - Discharge Summary/Plan Comment DC Time >30 min.: Yes (45 - transfer to acute hospital) - Patient Data Vitals - Most Recent: Last Vital Signs Temp 38.5 C H 09/26/16 09:59 Pulse 85 09/26/16 09:59 Resp 19 09/26/16 09:59 BP 111/54 L 09/26/16 09:59 Pulse Ox 91 L 09/26/16 09:59 Weight - Most Recent: 87.8 kg I&O - Last 24 hours: Intake & Output 09/25/16 09/26/16 09/26/16 22:59 06:59 14:59 Intake Total 3300 1349 Output Total 445 600 250 Balance 2855 749 -250 Lab Results - Last 24 hrs: Laboratory Results - last 24 hr 09/25/16 09/25/16 09/26/16 Range/Units 16:55 19:10 04:30 WBC 12.8 H (4.5-11.0) K/uL RBC 4.11 (3.30-5.50) M/uL Hgb 13.0 D (12.0-15.0) g/dL Hct 38.4 (36.0-48.0) % MCV 93 (80-98) fL MCH 32 H (27-31) pg MCHC 34 (32-36) % Plt Count 141 L (150-400) K/uL Sodium (140-148) mmol/L Potassium (3.6-5.2) mmol/L Chloride (100-108) mmol/L Carbon Dioxide (21-32) mmol/L Anion Gap (5.0-14.0) mmol/L BUN (7-18) mg/dL Creatinine (0.6-1.0) mg/dL Est Cr Clr Drug Dosing mL/min Estimated GFR (MDRD) (>60) Glucose (74-106) mg/dL Lactic Acid 4.5 H (0.4-2.0) mmol/L Calcium (8.5-10.1) mg/dL Urine Color Yellow Urine Appearance Turbid Urine pH 5.0 (4.5-8.0) Ur Specific [place] 1.015 (1.008-1.030) Urine Protein 30 H (NEGATIVE) mg/dL Urine Glucose (UA) Normal (NEGATIVE) mg/dL Urine Ketones Negative (NEGATIVE) mg/dL Urine Occult Blood Large (NEGATIVE) Urine Nitrite Negative (NEGATIVE) Urine Bilirubin Negative (NEGATIVE) Urine Urobilinogen Normal (NORMAL) mg/dL Ur Leukocyte Esterase Large (NEGATIVE) Urine RBC 5-10 H (0-5) Urine WBC >100 H (0-5) Ur Epithelial Cells Moderate Amorphous Sediment Moderate Urine Bacteria Many Urine Mucus Not seen 09/26/16 09/26/16 Range/Units 04:30 04:30 WBC (4.5-11.0) K/uL RBC (3.30-5.50) M/uL Hgb (12.0-15.0) g/dL Hct (36.0-48.0) % MCV (80-98) fL MCH (27-31) pg MCHC (32-36) % Plt Count (150-400) K/uL Sodium 144 (140-148) mmol/L Potassium 4.2 (3.6-5.2) mmol/L Chloride 109 H (100-108) mmol/L Carbon Dioxide 27 (21-32) mmol/L Anion Gap 12.2 (5.0-14.0) mmol/L BUN 32 H (7-18) mg/dL Creatinine 1.6 H (0.6-1.0) mg/dL Est Cr Clr Drug Dosing 28.46 mL/min Estimated GFR (MDRD) 33 L (>60) Glucose 102 (74-106) mg/dL Lactic Acid 1.6 (0.4-2.0) mmol/L Calcium 8.5 (8.5-10.1) mg/dL Urine Color Urine Appearance Urine pH (4.5-8.0) Ur Specific [place] (1.008-1.030) Urine Protein (NEGATIVE) mg/dL Urine Glucose (UA) (NEGATIVE) mg/dL Urine Ketones (NEGATIVE) mg/dL Urine Occult Blood (NEGATIVE) Urine Nitrite (NEGATIVE) Urine Bilirubin (NEGATIVE) Urine Urobilinogen (NORMAL) mg/dL Ur Leukocyte Esterase (NEGATIVE) Urine RBC (0-5) Urine WBC (0-5) Ur Epithelial Cells Amorphous Sediment Urine Bacteria Urine Mucus Med Orders - Current: Current Medications Acetaminophen (Tylenol) 650 mg PO Q4H PRN PRN Reason: Pain (Mild 1-3)/fever Last Admin: 09/26/16 08:14 Dose: 650 mg Clopidogrel Bisulfate (Plavix) 75 mg PO DAILY [facility] Last Admin: 09/26/16 09:22 Dose: 75 mg Sodium Chloride (Normal Saline) 1,000 mls @ 125 mls/hr IV ASDIRECTED [facility] Last Admin: 09/26/16 02:56 Dose: 125 mls/hr Piperacillin/Tazobactam/ (Dextrose 3.375 gm/ Premix) 50 mls @ 100 mls/hr IV Q6H [facility] Last Admin: 09/26/16 09:23 Dose: 100 mls/hr Insulin Aspart (Novolog) 0 unit SUBCUT WITHMEALSANDBED [facility] PRN Reason: Protocol Last Admin: 09/26/16 09:10 Dose: Not Given Ketorolac Tromethamine (Toradol) 30 mg IM Q6H PRN PRN Reason: Pain/Fever Last Admin: 09/26/16 08:14 Dose: 30 mg Ondansetron HCl (Zofran Odt) 4 mg PO Q6H PRN PRN Reason: Nausea able to take PO Ondansetron HCl (Zofran) 4 mg IV Q6H PRN PRN Reason: Nausea/Vomiting Pantoprazole Sodium (Protonix) 40 mg PO ACBREAKFAST [facility] Last Admin: 09/26/16 08:20 Dose: 40 mg Polyethylene Glycol (Miralax) 17 gm PO DAILY PRN PRN Reason: Constipation Senna/Docusate Sodium (Senna Plus) 1 tab PO BID PRN PRN Reason: Constipation Sodium Chloride (Saline Flush) 10 ml FLUSH ASDIRECTED PRN PRN Reason: Keep Vein Open Last Admin: 09/25/16 14:50 Dose: 10 ml Discontinued Medications Acetaminophen (Tylenol Extra Strength) 1,000 mg PO ONETIME ONE Stop: 09/25/16 14:32 Last Admin: 09/25/16 14:38 Dose: 1,000 mg Acetaminophen (Tylenol) 650 mg RECTAL NOW ONE Stop: 09/25/16 15:01 Last Admin: 09/25/16 15:08 Dose: 650 mg Sodium Chloride (Normal Saline) 1,000 mls @ 150 mls/hr IV ASDIRECTED [facility] Last Admin: 09/25/16 14:47 Dose: 150 mls/hr Piperacillin/Tazobactam/ (Dextrose 3.375 gm/ Premix) 50 mls @ 100 mls/hr IV ONETIME ONE Stop: 09/25/16 15:14 Last Admin: 09/25/16 14:56 Dose: 100 mls/hr Lactated Ringer's (Ringers, Lactated) 1,000 mls @ 999 mls/hr IV ASDIRECTED [facility] Last Admin: 09/25/16 15:06 Dose: 999 mls/hr Lactated Ringer's (Ringers, Lactated) 1,000 mls @ 999 mls/hr IV ASDIRECTED [facility] Stop: 09/25/16 17:46 Last Admin: 09/25/16 17:31 Dose: 999 mls/hr Ketorolac Tromethamine (Toradol) 30 mg IVPUSH ONETIME ONE Stop: 09/25/16 14:31 Last Admin: 09/25/16 14:44 Dose: 30 mg Ondansetron HCl (Zofran) 4 mg IVPUSH ONETIME ONE Stop: 09/25/16 14:59 Last Admin: 09/25/16 15:05 Dose: 4 mg Pantoprazole Sodium (Protonix Iv) 40 mg IV ONETIME ONE Stop: 09/25/16 16:31 Last Admin: 09/25/16 16:51 Dose: 40 mg *Q Meaningful Use (DIS) - VTE *Q VTE Criteria *Q: - Stroke *Q Stroke Criteria *Q: - AMI *Q AMI Criteria *Q:
== END 2016-09-26 10:50 | DRG 872 ==
LOC: JP.ED 13:15 → JP.ICU 15:37
PROVIDERS: ADMIT Internal Medicine; ATTEND Internal Medicine
DX: A41.9 Sepsis, unspecified organism (principal); N30.00 Acute cystitis without hematuria; N17.9 Acute kidney failure, unspecified; N13.2 Hydronephrosis with renal and ureteral calculous obstruction; I25.10 Atherosclerotic heart disease of native coronary artery without angina pectoris; R65.20 Severe sepsis without septic shock; E78.00 Pure hypercholesterolemia, unspecified; I10 Essential (primary) hypertension; E11.9 Type 2 diabetes mellitus without complications; E66.9 Obesity, unspecified; N80.9 Endometriosis, unspecified; M81.0 Age-related osteoporosis without current pathological fracture; Z95.1 Presence of aortocoronary bypass graft; Z90.710 Acquired absence of both cervix and uterus; Z87.440 Personal history of urinary (tract) infections; Z87.442 Personal history of urinary calculi; Z90.49 Acquired absence of other specified parts of digestive tract
CPT/HCPCS: 36415; 74176; 74176-26; 80048; 81001; 82962; 83605; 85025; 85027; 87040; 87077; 87086; 87088; 87186; 96361; 96365; 96375; 96376; 99284-25; A9270-GY; C9113; J1885; J2405; J2543; J7040; J7050; J7120

== ENCOUNTER 2019-09-20 19:35 | Inpatient (IN) | payer MEDICARE, BC ==
[2019-09-20] MEDS ORDERED: cefTRIAXone 1 GM in Sodium Chloride 0.9% 50 ML IV ONE (21:29)
[2019-09-20] MEDS ORDERED: Sodium Chloride 0.9% 1,000 ML IV SCH (21:30)
[2019-09-20] MEDS ORDERED: Acetaminophen 325 MG Tab PO ONE (21:35)
--- NOTE | 2019-09-20 21:54 | EDM.PDOC ---
ED HPI GENERAL MEDICAL PROBLEM - General Chief Complaint: Fever Stated Complaint: LEVAR STONE Time Seen by Provider: 09/20/19 20:53 Source of Information: Reports: Patient - History of Present Illness INITIAL COMMENTS - FREE TEXT/NARRATIVE: 64-year-old female with a history of type 2 diabetes mellitus, kidney stones with complicated UTIs, coronary artery disease, hyperlipidemia and hypertension presents to the ED with acute onset of fever, malaise and nausea. Her symptoms started yesterday with malaise and today her symptoms worsened and she developed a fever of 101 F or 38.7 C. She also experienced chills but no diaphoresis. She notes nausea but no vomiting. She reports mild abdominal discomfort but no flank pain. She reports no dysuria but has frequency. He was hospitalized in July of this year in [place] at [facility] with kidney stones. She had bilateral stents placed. 1 week ago she had the stents removed as well as several stones extracted. Denies any respiratory symptoms. Lower Pelvic Pain Score (Numeric/FACES): 5 - Related Data Allergies Allergy/AdvReac Type Severity Reaction Status Date / Time aspirin Allergy Facial Verified 09/20/19 21:17 Swelling Home Meds: Home Meds Clopidogrel [Plavix] 75 mg PO DAILY 09/25/16 [History] Metoprolol Tartrate 25 mg PO BID 09/25/16 [History] metFORMIN HCl [Metformin HCl] 500 mg PO BID 09/25/16 [History] Dulaglutide [Trulicity] 0 mg SQ WEEKLY 09/20/19 [History] Famotidine 10 mg PO BID 09/20/19 [History] hydroCHLOROthiazide [Hydrochlorothiazide] 12.5 mg PO BID 09/20/19 [History] Past Medical History Cardiovascular History: Reports: CAD, High Cholesterol, Hypertension Gastrointestinal History: Reports: Cholelithiasis Genitourinary History: Reports: Renal Calculus, UTI, 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 History: Reports: Endometriosis, Musculoskeletal History: Reports: Osteoporosis Endocrine/Metabolic History: Reports: Diabetes, Type II, Multinodular Thyroid, Obesity/BMI 30+ - Infectious Disease History Infectious Disease History: Reports: Chicken Pox, Measles, Mumps - Past Surgical History HEENT Surgical History: Reports: Tonsillectomy Cardiovascular Surgical History: Reports: Coronary Artery Bypass, Percutaneous Transluminal Angioplasty Other Cardiovascular Surgeries/Procedures: cabg x4 2014 GI Surgical History: Reports: Appendectomy, Cholecystectomy Female Surgical History: Reports: Hysterectomy, Kidney stone extraction, Lithotripsy/ESWL, Salpingo-Oophorectomy Social & Family History - Tobacco Use Smoking Status *Q: Never Smoker - Caffeine Use Caffeine Use: Reports: None Caffeine Use Comment: 1 cup - Recreational Drug Use Recreational Drug Use: No ED ROS GENERAL - Review of Systems Review Of Systems: See Below Constitutional: Reports: Fever, Chills, Malaise. Denies: Diaphoresis Respiratory: Reports: No Symptoms. Denies: Shortness of Breath, Cough Cardiovascular: Denies: Chest Pain Endocrine: Denies: Polydypsia, Polyuria GI/Abdominal: Reports: Nausea. Denies: Diarrhea, Vomiting : Reports: Frequency. Denies: Dysuria, Flank Pain Neurological: Reports: No Symptoms. Denies: Confusion, Headache Psychiatric: Reports: No Symptoms ED EXAM, SEPSIS - Physical Exam Exam: See Below Exam Limited By: No Limitations General Appearance: Alert, WD/WN, No Apparent Distress Ears: Normal External Exam, Normal Canal Nose: Normal Inspection Throat/Mouth: Normal Inspection, Normal Lips, Normal Oropharynx Head: Normocephalic Neck: Normal Inspection, Supple, Non-Tender Respiratory/Chest: No Respiratory Distress, Lungs Clear, Normal Breath Sounds Cardiovascular: Regular Rate, Rhythm, No Murmur GI/Abdominal Exam: Tender, Other (Patient's abdominal tenderness is generalized and mild. There is no rigidity present. Bowel sounds are normal.) Extremities: Normal Inspection, Normal Range of Motion Neurological: Alert, Oriented, Normal Cognition Course - Vital Signs Text/Narrative:: This patient has been ill since yesterday and had a temp of 101.7 or 38.7C and abnormal urinalysis. She has a history of obstructing ureteral stones and stents the past month. Her stents were removed last Friday. CT scan of the abdomen pelvis without contrast shows no obstructing stones and no hydronephrosis. Urinalysis was positive with nitrates packed WBCs and many bacteria. Urine and blood cultures were obtained. She has a lactic acid of 3.6 and a CRP of 5.03. Her white blood count 11,500. Potassium is 3.2 and creatinine is 1.2. Blood sugar is 221. All other labs appear to be normal. ECG showed no acute changes. The case was discussed with Dr. Funk who is admitting the patient for IV fluids and antibiotics. The patient has normal vital signs and she and her agree with this plan. She was given a liter of IV fluids as well as a gram of IV Rocephin. The patient agrees with this plan. Last Recorded V/S: Last Vital Signs Temp 37.1 C 09/20/19 22:35 Pulse 95 09/20/19 22:16 Resp 16 09/20/19 22:16 BP 134/73 09/20/19 22:16 Pulse Ox 96 09/20/19 22:16 - Orders/Labs/Meds Orders: Active Orders 24 hr Category Date Time Status EKG Documentation Completion [RC] ASDIRECTED Care 09/20/19 21:34 Active Chest 1V Frontal [CR] Stat Exams 09/20/19 21:34 Taken CULTURE BLOOD [BC] Urgent Lab 09/20/19 21:35 Received CULTURE BLOOD [BC] Urgent Lab 09/20/19 21:47 Received CULTURE URINE [RM] Stat Lab 09/20/19 21:36 Received Sodium Chloride 0.9% [Normal Saline] 1,000 ml Med 09/20/19 21:30 Active IV ASDIRECTED Blood Culture x2 Reflex Set [OM.PC] Urgent Oth 09/20/19 21:30 Ordered EKG 12 Lead [EK] Routine Ther 09/20/19 21:34 Ordered Medication Orders Sodium Chloride (Normal Saline) 1,000 mls @ 1,000 mls/hr IV ASDIRECTED RODDY Last Admin: 09/20/19 22:14 Dose: 1,000 mls/hr Documented by: ARNOLD Labs: Laboratory Tests 09/20/19 09/20/19 09/20/19 Range/Units 21:31 21:35 21:35 WBC 11.5 H (4.5-11.0) K/uL RBC 4.29 (3.30-5.50) M/uL Hgb 13.3 (12.0-15.0) g/dL Hct 39.5 (36.0-48.0) % MCV 92 (80-98) fL MCH 31 (27-31) pg MCHC 34 (32-36) % Plt Count 194 (150-400) K/uL Neut % (Auto) 77 H (36-66) % Lymph % (Auto) 14 L (24-44) % [place] % (Auto) 9 H (2-6) % Eos % (Auto) 0 L (2-4) % Baso % (Auto) 0 (0-1) % Sodium 140 (140-148) mmol/L Potassium 3.2 L (3.6-5.2) mmol/L Chloride 100 (100-108) mmol/L Carbon Dioxide 27 (21-32) mmol/L Anion Gap 16.2 H (5.0-14.0) mmol/L BUN 19 H (7-18) mg/dL Creatinine 1.2 H (0.6-1.0) mg/dL Est Cr Clr Drug Dosing 36.47 mL/min Estimated GFR (MDRD) 45 L (>60) Glucose 221 H (74-106) mg/dL Lactic Acid (0.4-2.0) mmol/L Calcium 9.8 D (8.5-10.1) mg/dL Total Bilirubin 1.5 H (0.2-1.0) mg/dL AST 36 (15-37) U/L ALT 54 (12-78) U/L Alkaline Phosphatase 53 (46-116) U/L C-Reactive Protein 5.03 H (0.0-0.3) mg/dL Total Protein 7.1 (6.4-8.2) g/dL Albumin 3.3 L (3.4-5.0) g/dL Globulin 3.8 H (2.3-3.5) g/dL Albumin/Globulin Ratio 0.9 L (1.2-2.2) Urine Color Yellow (YELLOW) Urine Appearance Cloudy A (CLEAR) Urine pH 6.5 (5.0-8.0) Ur Specific [place] 1.025 (1.008-1.030) Urine Protein 100 H (NEGATIVE) mg/dL Urine Glucose (UA) Negative (NEGATIVE) mg/dL Urine Ketones Negative (NEGATIVE) mg/dL Urine Occult Blood Moderate H (NEGATIVE) Urine Nitrite Positive H (NEGATIVE) Urine Bilirubin Small H (NEGATIVE) Urine Urobilinogen 2.0 H (0.2-1.0) EU/dL Ur Leukocyte Esterase Moderate H (NEGATIVE) Urine RBC Semi-packed H (0-5) Urine WBC Packed H (0-5) Ur Epithelial Cells Few Amorphous Sediment Not seen Urine Bacteria Many Urine Mucus Not seen 06/29/20 Range/Units 21:35 WBC (4.5-11.0) K/uL RBC (3.30-5.50) M/uL Hgb (12.0-15.0) g/dL Hct (36.0-48.0) % MCV (80-98) fL MCH (27-31) pg MCHC (32-36) % Plt Count (150-400) K/uL Neut % (Auto) (36-66) % Lymph % (Auto) (24-44) % [place] % (Auto) (2-6) % Eos % (Auto) (2-4) % Baso % (Auto) (0-1) % Sodium (140-148) mmol/L Potassium (3.6-5.2) mmol/L Chloride (100-108) mmol/L Carbon Dioxide (21-32) mmol/L Anion Gap (5.0-14.0) mmol/L BUN (7-18) mg/dL Creatinine (0.6-1.0) mg/dL Est Cr Clr Drug Dosing mL/min Estimated GFR (MDRD) (>60) Glucose (74-106) mg/dL Lactic Acid 3.6 H (0.4-2.0) mmol/L Calcium (8.5-10.1) mg/dL Total Bilirubin (0.2-1.0) mg/dL AST (15-37) U/L ALT (12-78) U/L Alkaline Phosphatase (46-116) U/L C-Reactive Protein (0.0-0.3) mg/dL Total Protein (6.4-8.2) g/dL Albumin (3.4-5.0) g/dL Globulin (2.3-3.5) g/dL Albumin/Globulin Ratio (1.2-2.2) Urine Color (YELLOW) Urine Appearance (CLEAR) Urine pH (5.0-8.0) Ur Specific [place] (1.008-1.030) Urine Protein (NEGATIVE) mg/dL Urine Glucose (UA) (NEGATIVE) mg/dL Urine Ketones (NEGATIVE) mg/dL Urine Occult Blood (NEGATIVE) Urine Nitrite (NEGATIVE) Urine Bilirubin (NEGATIVE) Urine Urobilinogen (0.2-1.0) EU/dL Ur Leukocyte Esterase (NEGATIVE) Urine RBC (0-5) Urine WBC (0-5) Ur Epithelial Cells Amorphous Sediment Urine Bacteria Urine Mucus Meds: Medications Generic Name Dose Route Start Last Admin Trade Name Freq PRN Reason Stop Dose Admin Sodium Chloride 1,000 mls @ 1,000 mls/hr 09/20/19 21:30 09/20/19 22:14 Normal Saline IV 1,000 mls/hr ASDIRECTED RODDY Administration Discontinued Medications Generic Name Dose Route Start Last Admin Trade Name Freq PRN Reason Stop Dose Admin Acetaminophen 650 mg 09/20/19 21:35 09/20/19 22:36 Tylenol PO 09/20/19 21:36 650 mg NOW ONE Administration Ceftriaxone Sodium 1 gm/ 50 mls @ 100 mls/hr 09/20/19 21:29 09/20/19 22:35 Sodium Chloride IV 09/20/19 21:58 100 mls/hr ONETIME ONE Administration Departure - Departure Time of Disposition: 23:14 Disposition: Admitted As Inpatient 64 Condition: Good Clinical Impression: Complicated UTI (urinary tract infection) - Discharge Information *PRESCRIPTION DRUG MONITORING PROGRAM REVIEWED*: No *COPY OF PRESCRIPTION DRUG MONITORING REPORT IN PATIENT WADE: No Referrals: PCP,None [Primary Care Provider] - Forms: ED Department Discharge Additional Instructions: admit Sepsis Event Note (ED) - Evaluation Sepsis Screening Result: Possible Sepsis Risk - Focused Exam Vital Signs: Vital Signs Temp Pulse Resp BP Pulse Ox 09/20/19 22:35 37.1 C 09/20/19 22:16 95 16 134/73 96 09/20/19 21:15 38.2 C H 101 H 16 150/77 H 97 09/20/19 20:56 38.2 C H 101 H 16 150/77 H 97 - My Orders Last 24 Hours: My Active Orders 09/20/19 21:30 Sodium Chloride 0.9% [Normal Saline] 1,000 ml IV ASDIRECTED Blood Culture x2 Reflex Set [OM.PC] Urgent 09/20/19 21:34 EKG Documentation Completion [RC] ASDIRECTED Chest 1V Frontal [CR] Stat EKG 12 Lead [EK] Routine 09/20/19 21:35 CULTURE BLOOD [BC] Urgent 09/20/19 21:36 CULTURE URINE [RM] Stat 09/20/19 21:47 CULTURE BLOOD [BC] Urgent - Assessment/Plan Last 24 Hours: My Active Orders 09/20/19 21:30 Sodium Chloride 0.9% [Normal Saline] 1,000 ml IV ASDIRECTED Blood Culture x2 Reflex Set [OM.PC] Urgent 09/20/19 21:34 EKG Documentation Completion [RC] ASDIRECTED Chest 1V Frontal [CR] Stat EKG 12 Lead [EK] Routine 09/20/19 21:35 CULTURE BLOOD [BC] Urgent 09/20/19 21:36 CULTURE URINE [RM] Stat 09/20/19 21:47 CULTURE BLOOD [BC] Urgent
--- NOTE | 2019-09-20 22:56 | CRLCT ---
INDICATION: FEVER. HX OF KIDNEY STONES. CT ABDOMEN AND PELVIS WITHOUT CONTRAST TECHNIQUE: Multidetector CT imaging was performed through the abdomen and pelvis without intravenous contrast administration. Coronal and sagittal reconstructions were generated. COMPARISON: 09/26/2016 CT abdomen and pelvis. FINDINGS: Lower chest: Lung bases are clear. Liver: Subtle lobulation of the liver contour suggesting the possibility of cirrhosis. No focal liver lesion identified. Gallbladder and bile ducts: Status post cholecystectomy, as before. No biliary dilation identified. Pancreas: Unremarkable. Spleen: Upper normal spleen size. Adrenals: No nodules or masses. Kidneys, ureters, and urinary bladder: Bilateral medullary nephrocalcinosis and several very small bilateral nonobstructing intrarenal stones, suggesting medullary sponge kidney. No ureteral stones identified. Slight fullness of the proximal left ureter, mild dilation of the left renal pelvis, and question of slight wall thickening of the left renal pelvis. No right hydronephrosis. No bladder mass or definite wall thickening. Gastrointestinal tract and abdominal wall: Normal caliber bowel without wall thickening. The appendix is normal. Diffuse thinning of the abdominal wall musculature with broad-based protrusion of the lower anterior abdominal wall. Vascular structures: Normal caliber abdominal aorta with mild aortoiliac atherosclerotic calcifications. Peritoneum: No free air, abscess, or significant free fluid. Lymph nodes: No pathologically enlarged nodes identified. Reproductive organs: Status post hysterectomy, as before. No pelvic masses. Bones: Multilevel spondylosis. Status post sternotomy, as before. IMPRESSION: 1. Bilateral medullary nephrocalcinosis and small bilateral nonobstructing intrarenal stones, suggesting medullary sponge kidney. No ureteral stone identified. 2. Mild dilation of the left renal pelvis and proximal left ureter with question of mild wall thickening of the left renal pelvis. These findings could reflect recent left ureteral stone passage versus ascending infection. Clinical correlation is recommended. 3. Question of cirrhosis. 4. Nonacute additional findings as detailed above. MIGUEL A CROW MD [employer] Dictated by Gordon Crow MD @ 09/20/2019 10:53:46 PM Dictated by: Gordon Crow MD @ 09/20/2019 22:53:58 (Electronically Signed)
[2019-09-20] MEDS ORDERED: Promethazine 6.25 MG in Sodium Chloride 0.9% 50 ML IV PRN (23:27)
[2019-09-20] MEDS ORDERED: Morphine 2 MG/ML SYRINGE IVPUSH PRN (23:27)
[2019-09-20] MEDS ORDERED: Acetaminophen/HYDROcodone 325-5 MG Tab PO PRN (23:27)
[2019-09-20] MEDS ORDERED: Ondansetron 4 MG Tab.DIS PO PRN (23:27)
[2019-09-20] MEDS ORDERED: Albuterol 0.083% 2.5 MG/3 ML Neb Soln NEB PRN (23:27)
[2019-09-20] MEDS ORDERED: Docusate Sodium 100 MG Cap PO PRN (23:27)
[2019-09-20] MEDS: Sodium Chloride 0.9% 2,000 ML IV SCH (23:30)
--- NOTE | 2019-09-20 23:47 | PCM.HP.2 ---
H&P History of Present Illness - General Date of Service: 09/20/19 Admit Problem/Dx: Admission Diagnosis/Problem Admission Diagnosis/Problem Urinary tract infection Source of Information: Patient History Limitations: Reports: No Limitations - History of Present Illness Initial Comments - Free Text/Narative: Patient is a 64yo female with PMH of T2DM, CAD with CABG x4, renal stones with recent stent placement and removal, GERD, and HTN. Patient is here today because of a UTI she believes started yesterday. She says she felt poorly yesterday and worse today. She has been having trouble drinking fluids today because she didn't feel well. She has been tired and has been having some chills. She denies any NVD, abd pain, back pain, fever, dysuria, or frequency. She says she has recently had some elevated creatinine with her kidney issues but they have resolved while in the hospital. She manages her diabetes with metformin daily and weekly trulicity. She uses metoprolol and plavix for her heart. She says she does not have any antibiotic allergies. She is allergic to ASA. She says overall she has been feeling better since arriving in the ER and getting 1L of fluid. Onset of Symptoms: Reports: Gradual Symptom Onset Date: 09/19/19 Improves with: Reports: None Worsens with: Reports: None Associated Symptoms: Reports: No Other Symptoms Lower Pelvic Pain Score (Numeric/FACES): 5 - Related Data Allergies/Adverse Reactions: Allergies Allergy/AdvReac Type Severity Reaction Status Date / Time aspirin Allergy Facial Verified 09/20/19 21:17 Swelling Home Medications: Home Meds Clopidogrel [Plavix] 75 mg PO DAILY 09/25/16 [History] Metoprolol Tartrate 25 mg PO BID 09/25/16 [History] metFORMIN HCl [Metformin HCl] 500 mg PO BID 09/25/16 [History] Dulaglutide [Trulicity] 0 mg SQ WEEKLY 09/20/19 [History] Famotidine 10 mg PO BID 09/20/19 [History] hydroCHLOROthiazide [Hydrochlorothiazide] 12.5 mg PO BID 09/20/19 [History] Past Medical History Cardiovascular History: Reports: CAD, High Cholesterol, Hypertension Gastrointestinal History: Reports: Cholelithiasis Genitourinary History: Reports: Renal Calculus, UTI, 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: 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: Endometriosis, Musculoskeletal History: Reports: Osteoporosis Endocrine/Metabolic History: Reports: Diabetes, Type II, Multinodular Thyroid, Obesity/BMI 30+ - Infectious Disease History Infectious Disease History: Reports: Chicken Pox, Measles, Mumps - Past Surgical History HEENT Surgical History: Reports: Tonsillectomy Cardiovascular Surgical History: Reports: Coronary Artery Bypass, Percutaneous Transluminal Angioplasty Other Cardiovascular Surgeries/Procedures: cabg x4 2015 GI Surgical History: Reports: Appendectomy, Cholecystectomy Female Surgical History: Reports: Hysterectomy, Kidney stone extraction, Lith otripsy/ESWL, Salpingo-Oophorectomy Social & Family History - Tobacco Use Smoking Status *Q: Never Smoker - Caffeine Use Caffeine Use: Reports: None Caffeine Use Comment: 1 cup - Recreational Drug Use Recreational Drug Use: No H&P Review of Systems - Review of Systems: Review Of Systems: See Below General: Reports: Chills, Fatigue, Decreased Appetite HEENT: Reports: No Symptoms Pulmonary: Reports: No Symptoms Cardiovascular: Reports: No Symptoms Gastrointestinal: Reports: No Symptoms Genitourinary: Denies: Dysuria, Frequency, Burning, Flank Pain Musculoskeletal: Reports: No Symptoms Skin: Reports: No Symptoms Psychiatric: Reports: No Symptoms Neurological: Reports: No Symptoms Hematologic/Lymphatic: Reports: No Symptoms Immunologic: Reports: No Symptoms Exam - Exam Exam: See Below - Vital Signs Vital Signs: Last Vital Signs Temp 37.1 C 09/20/19 22:35 Pulse 92 09/20/19 22:45 Resp 20 09/20/19 22:45 BP 135/68 09/20/19 22:45 Pulse Ox 96 09/20/19 22:45 Weight: 82.6 kg - Exam General: Alert, Oriented, Cooperative HEENT: PERRLA, Conjunctiva Clear, EACs Clear, EOMI, Hearing Intact, Mucosa Moist & [place], Nares Patent, Normal Nasal Septum, Posterior Pharynx Clear, Pupils Equal, TMs Clear Neck: Supple, Trachea Midline, 2 Lungs: Clear to Auscultation, Normal Respiratory Effort Cardiovascular: Regular Rate, Regular Rhythm GI/Abdominal Exam: Normal Bowel Sounds, Soft, Non-Tender, No Organomegaly, No Distention, No Abnormal Bruit, No Mass, Pelvis Stable (Female) Exam: Deferred Rectal (Female) Exam: Deferred Back Exam: Normal Inspection, Full Range of Motion, NT Extremities: Normal Inspection, Normal Range of Motion, Non-Tender, No Pedal Edema, Normal Capillary Refill Skin: Warm, Dry, Intact Neurological: Cranial Nerves Intact, Reflexes Equal Bilateral Neuro Extensive - Mental Status: Alert, Oriented x3, Normal Mood/Affect, Normal Cognition, Memory Intact Neuro Extensive - Motor, Sensory, Reflexes: CN II-XII Intact, Normal Gait, Normal Reflexes Psychiatric: Alert, Normal Affect, Normal Mood - Patient Data Lab Results Last 24 hrs: Laboratory Results - last 24 hr 09/20/19 09/20/19 09/20/19 Range/Units 21:31 21:35 21:35 WBC 11.5 H (4.5-11.0) K/uL RBC 4.29 (3.30-5.50) M/uL Hgb 13.3 (12.0-15.0) g/dL Hct 39.5 (36.0-48.0) % MCV 92 (80-98) fL MCH 31 (27-31) pg MCHC 34 (32-36) % Plt Count 194 (150-400) K/uL Neut % (Auto) 77 H (36-66) % Lymph % (Auto) 14 L (24-44) % [place] % (Auto) 9 H (2-6) % Eos % (Auto) 0 L (2-4) % Baso % (Auto) 0 (0-1) % Sodium 140 (140-148) mmol/L Potassium 3.2 L (3.6-5.2) mmol/L Chloride 100 (100-108) mmol/L Carbon Dioxide 27 (21-32) mmol/L Anion Gap 16.2 H (5.0-14.0) mmol/L BUN 19 H (7-18) mg/dL Creatinine 1.2 H (0.6-1.0) mg/dL Est Cr Clr Drug Dosing 36.47 mL/min Estimated GFR (MDRD) 45 L (>60) Glucose 221 H (74-106) mg/dL Lactic Acid (0.4-2.0) mmol/L Calcium 9.8 D (8.5-10.1) mg/dL Total Bilirubin 1.5 H (0.2-1.0) mg/dL AST 36 (15-37) U/L ALT 54 (12-78) U/L Alkaline Phosphatase 53 (46-116) U/L C-Reactive Protein 5.03 H (0.0-0.3) mg/dL Total Protein 7.1 (6.4-8.2) g/dL Albumin 3.3 L (3.4-5.0) g/dL Globulin 3.8 H (2.3-3.5) g/dL Albumin/Globulin Ratio 0.9 L (1.2-2.2) Urine Color Yellow (YELLOW) Urine Appearance Cloudy A (CLEAR) Urine pH 6.5 (5.0-8.0) Ur Specific [place] 1.025 (1.008-1.030) Urine Protein 100 H (NEGATIVE) mg/dL Urine Glucose (UA) Negative (NEGATIVE) mg/dL Urine Ketones Negative (NEGATIVE) mg/dL Urine Occult Blood Moderate H (NEGATIVE) Urine Nitrite Positive H (NEGATIVE) Urine Bilirubin Small H (NEGATIVE) Urine Urobilinogen 2.0 H (0.2-1.0) EU/dL Ur Leukocyte Esterase Moderate H (NEGATIVE) Urine RBC Semi-packed H (0-5) Urine WBC Packed H (0-5) Ur Epithelial Cells Few Amorphous Sediment Not seen Urine Bacteria Many Urine Mucus Not seen 09/20/19 Range/Units 21:35 WBC (4.5-11.0) K/uL RBC (3.30-5.50) M/uL Hgb (12.0-15.0) g/dL Hct (36.0-48.0) % MCV (80-98) fL MCH (27-31) pg MCHC (32-36) % Plt Count (150-400) K/uL Neut % (Auto) (36-66) % Lymph % (Auto) (24-44) % [place] % (Auto) (2-6) % Eos % (Auto) (2-4) % Baso % (Auto) (0-1) % Sodium (140-148) mmol/L Potassium (3.6-5.2) mmol/L Chloride (100-108) mmol/L Carbon Dioxide (21-32) mmol/L Anion Gap (5.0-14.0) mmol/L BUN (7-18) mg/dL Creatinine (0.6-1.0) mg/dL Est Cr Clr Drug Dosing mL/min Estimated GFR (MDRD) (>60) Glucose (74-106) mg/dL Lactic Acid 3.6 H (0.4-2.0) mmol/L Calcium (8.5-10.1) mg/dL Total Bilirubin (0.2-1.0) mg/dL AST (15-37) U/L ALT (12-78) U/L Alkaline Phosphatase (46-116) U/L C-Reactive Protein (0.0-0.3) mg/dL Total Protein (6.4-8.2) g/dL Albumin (3.4-5.0) g/dL Globulin (2.3-3.5) g/dL Albumin/Globulin Ratio (1.2-2.2) Urine Color (YELLOW) Urine Appearance (CLEAR) Urine pH (5.0-8.0) Ur Specific [place] (1.008-1.030) Urine Protein (NEGATIVE) mg/dL Urine Glucose (UA) (NEGATIVE) mg/dL Urine Ketones (NEGATIVE) mg/dL Urine Occult Blood (NEGATIVE) Urine Nitrite (NEGATIVE) Urine Bilirubin (NEGATIVE) Urine Urobilinogen (0.2-1.0) EU/dL Ur Leukocyte Esterase (NEGATIVE) Urine RBC (0-5) Urine WBC (0-5) Ur Epithelial Cells Amorphous Sediment Urine Bacteria Urine Mucus Result Diagrams: 09/20/19 21:35 09/20/19 21:35 Sepsis Event Note - Evaluation Sepsis Screening Result: Possible Sepsis Risk Current Stage of Sepsis: Sepsis Possible Source of Sepsis: Genitourinary - Focused Exam Sepsis Event Note Statement: Focused Sepsis Exam Completed Vital Signs: Vital Signs Temp Pulse Resp BP Pulse Ox 09/20/19 22:45 92 20 135/68 96 09/20/19 22:35 37.1 C 09/20/19 22:16 95 16 134/73 96 09/20/19 21:15 38.2 C H 101 H 16 150/77 H 97 09/20/19 20:56 38.2 C H 101 H 16 150/77 H 97 Capillary Refill, Detail: Less than/Equal to (</=) 2 Seconds Pulse Description: 2+ Normal Peripheral Pulse Location: Dorsalis Pedis Skin Exam (Focused Sepsis): Normal Turgor Date Exam was Performed: 09/21/19 Time Exam was Performed: 00:21 - Problem List (1) Sepsis SNOMED Code(s): 84996120 ICD Code: A41.9 - SEPSIS, UNSPECIFIED ORGANISM Status: Acute Priority: High Current Visit: No Onset Date: ~09/20/19 Problem Details: Will give patient 30ml/kg bolus and 125cc fluid as maintenance. Patient received rocephin in ER. Patient's lactate is elevated and this will be repeated with reflex to monitor. Patient will be placed on continuous O2 monitoring. Patient is stable in the ER with no hypotension, Qualifiers: Sepsis type: sepsis due to unspecified organism Sepsis acute organ dysfunction status: without acute organ dysfunction Qualified Code(s): A41.9 - Sepsis, unspecified organism (2) Acute kidney injury SNOMED Code(s): 27799068, 62251361 ICD Code: N17.9 - ACUTE KIDNEY FAILURE, UNSPECIFIED Status: Acute Current Visit: No Onset Date: ~09/20/19 Problem Details: Will give patient fluid 30ml/kg bolus and recheck kidney function in AM. (3) Complicated UTI (urinary tract infection) SNOMED Code(s): 47138359 ICD Code: N39.0 - URINARY TRACT INFECTION, SITE NOT SPECIFIED Status: Acute Current Visit: Yes Onset Date: ~09/20/19 Problem Details: Patient is a T2DM with UTI after stent placement. Patient was given 1 dose of rocephin in ER, and fluid rehydration per sepsis protocol. (4) Type II diabetes mellitus SNOMED Code(s): 20533233 ICD Code: E11.9 - TYPE 2 DIABETES MELLITUS WITHOUT COMPLICATIONS Status: Chronic Current Visit: No Onset Date: Unknown Problem Details: Patient's home medications of metformin and trulicity will be held in the hospital. Patient gives weekly trulicity shots and this has been performed already today, and will hold metformin. 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 Diabetes mellitus complication status: with circulatory complication Diabetes mellitus complication detail: with other circulatory complications Qualified Code(s): E11.59 - Type 2 diabetes mellitus with other circulatory complications (5) CAD (coronary atherosclerotic disease) SNOMED Code(s): 793888681 ICD Code: I25.10 - ATHSCL HEART DISEASE OF [place] CORONARY ARTERY W/O ANG PCTRS Status: Acute Current Visit: Yes Onset Date: Unknown Problem Details: Will continue patient's home medications of metoprolol and plavix Qualifiers: Coronary Disease-Associated Artery/Lesion type: unspecified vessel or lesion type [place] vs. transplanted heart: [place] heart Associated angina: without angina Qualified Code(s): I25.10 - Atherosclerotic heart disease of [place] coronary artery without angina pectoris (6) HTN (hypertension), benign SNOMED Code(s): 27631716 ICD Code: I10 - ESSENTIAL (PRIMARY) HYPERTENSION Status: Acute Current Visit: Yes Onset Date: Unknown Problem Details: Will continue patient's medication of HCTZ as patient's BP is stable in ER prior to fluid bolus (7) GERD (gastroesophageal reflux disease) SNOMED Code(s): 235930424 ICD Code: K21.9 - GASTRO-ESOPHAGEAL REFLUX DISEASE WITHOUT ESOPHAGITIS Status: Acute Current Visit: Yes Onset Date: Unknown Problem Details: Will continue famotidine Problem List Initiated/Reviewed/Updated: Yes Orders Last 24hrs: Active Orders 24 hr Category Date Time Status Patient Status Manage Transfer [TRANSFER] Routine ADT 09/20/19 23:32 Ordered Patient Status [ADT] Routine ADT 09/20/19 23:27 Active EKG Documentation Completion [RC] ASDIRECTED Care 09/20/19 21:34 Active Oxygen Therapy [RC] PRN Care 09/20/19 23:27 Active Pulse Oximetry [RC] CONTINUOUS Care 09/20/19 23:29 Active RT Aerosol Therapy [RC] ASDIRECTED Care 09/20/19 23:32 Active VTE/DVT Education [RC] Per Unit Routine Care 09/20/19 23:27 Active Vital Signs [RC] Q4H Care 09/20/19 23:27 Active Chest 1V Frontal [CR] Stat Exams 09/20/19 21:34 Taken BASIC METABOLIC PANEL,BMP [CHEM] Timed Lab 09/21/19 07:00 Ordered CULTURE BLOOD [BC] Urgent Lab 09/20/19 21:35 Received CULTURE BLOOD [BC] Urgent Lab 09/20/19 21:47 Received CULTURE URINE [RM] Stat Lab 09/20/19 21:36 Received Acetaminophen [Tylenol] Med 09/20/19 23:27 Ordered 650 mg PO Q4H PRN Acetaminophen/HYDROcodone [[place] 325-5 MG] Med 09/20/19 23:27 Ordered 1 tab PO Q4H PRN Albuterol [Proventil Neb Soln] Med 09/20/19 23:27 Ordered 2.5 mg NEB Q4H PRN Docusate Sodium [Colace] Med 09/20/19 23:27 Ordered 100 mg PO BID PRN Morphine Sulfate [Morphine] Med 09/20/19 23:27 Ordered 2 mg IVPUSH Q2H PRN Ondansetron [Zofran ODT] Med 09/20/19 23:27 Ordered 4 mg PO Q6H PRN Promethazine [Phenergan] 6.25 mg Med 09/20/19 23:27 Ordered Sodium Chloride 0.9% [Normal Saline] 50 ml IV Q6H Sodium Chloride 0.9% [Normal Saline] 1,000 ml Med 09/20/19 21:30 Active IV ASDIRECTED Blood Culture x2 Reflex Set [OM.PC] Urgent Oth 09/20/19 21:30 Ordered Resuscitation Status Routine Resus Stat 09/20/19 23:27 Ordered EKG 12 Lead [EK] Routine Ther 09/20/19 21:34 Ordered Medication Orders Acetaminophen (Tylenol) 650 mg PO Q4H PRN PRN Reason: Pain (Mild 1-3)/fever Hydrocodone Bitart/Acetaminophen ([place] 325-5 Mg) 1 tab PO Q4H PRN PRN Reason: Pain (moderate 4-6) Albuterol (Proventil Neb Soln) 2.5 mg NEB Q4H PRN PRN Reason: Shortness Of Breath/wheezing Docusate Sodium (Colace) 100 mg PO BID PRN PRN Reason: Constipation Sodium Chloride (Normal Saline) 1,000 mls @ 1,000 mls/hr IV ASDIRECTED [facility] [place] Last Admin: 09/20/19 22:14 Dose: 1,000 mls/hr Documented by: ARNOLD Promethazine HCl 6.25 mg/ (Sodium Chloride) 50.25 mls @ 200 mls/hr IV Q6H PRN PRN Reason: Nausea/Vomiting Morphine Sulfate (Morphine) 2 mg IVPUSH Q2H PRN PRN Reason: Pain (severe 7-10) Ondansetron HCl (Zofran Odt) 4 mg PO Q6H PRN PRN Reason: Nausea able to take PO - Mortality Measure Prognosis:: Good
[2019-09-21] MEDS: Sodium Chloride 0.9% 2,000 ML IV SCH (01:33)
[2019-09-21] MEDS: Acetaminophen 325 MG Tab PO PRN ×4 (02:23→20:44)
[2019-09-21] MEDS ORDERED: Sodium Chloride 0.9% 1,000 ML IV SCH (03:15)
[2019-09-21] MEDS ORDERED: Sodium Chloride 0.45% with KCl 1,000 ML IV SCH (05:30)
[2019-09-21] MEDS: Metoprolol Succinate 25 MG Tab.ER PO SCH (08:22)
[2019-09-21] MEDS: Hydrochlorothiazide 12.5 MG Cap PO SCH (08:23)
[2019-09-21] MEDS: Famotidine 20 MG Tab PO SCH (08:23)
[2019-09-21] MEDS: Clopidogrel 75 MG Tab PO SCH (08:23)
[2019-09-21] MEDS: Insulin Lispro 100 Unit/ML 3 ML KwikPen SUBCUT SCH ×4 (08:29→22:06)
--- NOTE | 2019-09-21 08:56 | CR ---
CHEST: Portable 09/20/2019 at 1026 CLINICAL HISTORY:Fever COMPARISON:None FINDINGS: Heart size and pulmonary vascular are normal. There has been previous sternotomy. On [place] are clear. There are no effusions Impression: Previous sternotomy No acute cardiopulmonary process.
[2019-09-21] MEDS ORDERED: Potassium Chloride 20 MEQ Tab.ER PO ONE ×2 (09:00→16:00)
[2019-09-21] MEDS: NS + KCl 20mEq/L 1,000 ML IV SCH ×2 (09:10→19:59)
[2019-09-21] MEDS ORDERED: Potassium Chloride 20 MEQ, Lidocaine 1% 2 ML in Sodium Chloride 0.9% 100 ML IV SCH (10:00)
--- NOTE | 2019-09-21 10:40 | PCM.PN ---
- General Info Date of Service: 09/21/19 Subjective Update: No acute events overnight. Lactic acid level has improved since admission. Temperature curve is better but still having fevers. She feels a little better today with less weakness and less pain. Still not much of an appetite. Heart rate has improved. Tolerating antibiotics so far and cultures are pending. Functional Status: Reports: Pain Controlled, Tolerating Diet - Review of Systems General: Reports: Fever, Weakness Gastrointestinal: Reports: Abdominal Pain - Patient Data Vitals - Most Recent: Last Vital Signs Temp 37.3 C 09/21/19 10:28 Pulse 94 09/21/19 08:22 Resp 16 09/21/19 08:00 BP 122/82 09/21/19 08:22 Pulse Ox 97 09/21/19 08:00 Weight - Most Recent: 82.6 kg I&O - Last 24 Hours: Intake & Output 09/20/19 09/21/19 09/21/19 22:59 06:59 14:59 Intake Total 3468 533 Output Total 550 Balance 2918 533 Lab Results Last 24 Hours: Laboratory Results - last 24 hr 09/20/19 09/20/19 09/20/19 Range/Units 21:31 21:35 21:35 WBC 11.5 H (4.5-11.0) K/uL RBC 4.29 (3.30-5.50) M/uL Hgb 13.3 (12.0-15.0) g/dL Hct 39.5 (36.0-48.0) % MCV 92 (80-98) fL MCH 31 (27-31) pg MCHC 34 (32-36) % Plt Count 194 (150-400) K/uL Neut % (Auto) 77 H (36-66) % Lymph % (Auto) 14 L (24-44) % [place] % (Auto) 9 H (2-6) % Eos % (Auto) 0 L (2-4) % Baso % (Auto) 0 (0-1) % Sodium 140 (140-148) mmol/L Potassium 3.2 L (3.6-5.2) mmol/L Chloride 100 (100-108) mmol/L Carbon Dioxide 27 (21-32) mmol/L Anion Gap 16.2 H (5.0-14.0) mmol/L BUN 19 H (7-18) mg/dL Creatinine 1.2 H (0.6-1.0) mg/dL Est Cr Clr Drug Dosing 36.47 mL/min Estimated GFR (MDRD) 45 L (>60) Glucose 221 H (74-106) mg/dL Lactic Acid (0.4-2.0) mmol/L Calcium 9.8 D (8.5-10.1) mg/dL Total Bilirubin 1.5 H (0.2-1.0) mg/dL AST 36 (15-37) U/L ALT 54 (12-78) U/L Alkaline Phosphatase 53 (46-116) U/L C-Reactive Protein 5.03 H (0.0-0.3) mg/dL Total Protein 7.1 (6.4-8.2) g/dL Albumin 3.3 L (3.4-5.0) g/dL Globulin 3.8 H (2.3-3.5) g/dL Albumin/Globulin Ratio 0.9 L (1.2-2.2) Urine Color Yellow (YELLOW) Urine Appearance Cloudy A (CLEAR) Urine pH 6.5 (5.0-8.0) Ur Specific [place] 1.025 (1.008-1.030) Urine Protein 100 H (NEGATIVE) mg/dL Urine Glucose (UA) Negative (NEGATIVE) mg/dL Urine Ketones Negative (NEGATIVE) mg/dL Urine Occult Blood Moderate H (NEGATIVE) Urine Nitrite Positive H (NEGATIVE) Urine Bilirubin Small H (NEGATIVE) Urine Urobilinogen 2.0 H (0.2-1.0) EU/dL Ur Leukocyte Esterase Moderate H (NEGATIVE) Urine RBC Semi-packed H (0-5) Urine WBC Packed H (0-5) Ur Epithelial Cells Few Amorphous Sediment Not seen Urine Bacteria Many Urine Mucus Not seen 09/20/19 09/21/19 09/21/19 Range/Units 21:35 01:00 04:50 WBC (4.5-11.0) K/uL RBC (3.30-5.50) M/uL Hgb (12.0-15.0) g/dL Hct (36.0-48.0) % MCV (80-98) fL MCH (27-31) pg MCHC (32-36) % Plt Count (150-400) K/uL Neut % (Auto) (36-66) % Lymph % (Auto) (24-44) % [place] % (Auto) (2-6) % Eos % (Auto) (2-4) % Baso % (Auto) (0-1) % Sodium 143 (140-148) mmol/L Potassium 2.8 L* (3.6-5.2) mmol/L Chloride 107 (100-108) mmol/L Carbon Dioxide 27 (21-32) mmol/L Anion Gap 11.8 (5.0-14.0) mmol/L BUN 16 (7-18) mg/dL Creatinine 1.1 H (0.6-1.0) mg/dL Est Cr Clr Drug Dosing 39.79 mL/min Estimated GFR (MDRD) 50 L (>60) Glucose 195 H (74-106) mg/dL Lactic Acid 3.6 H 2.1 H (0.4-2.0) mmol/L Calcium 8.3 L D (8.5-10.1) mg/dL Total Bilirubin (0.2-1.0) mg/dL AST (15-37) U/L ALT (12-78) U/L Alkaline Phosphatase (46-116) U/L C-Reactive Protein (0.0-0.3) mg/dL Total Protein (6.4-8.2) g/dL Albumin (3.4-5.0) g/dL Globulin (2.3-3.5) g/dL Albumin/Globulin Ratio (1.2-2.2) Urine Color (YELLOW) Urine Appearance (CLEAR) Urine pH (5.0-8.0) Ur Specific [place] (1.008-1.030) Urine Protein (NEGATIVE) mg/dL Urine Glucose (UA) (NEGATIVE) mg/dL Urine Ketones (NEGATIVE) mg/dL Urine Occult Blood (NEGATIVE) Urine Nitrite (NEGATIVE) Urine Bilirubin (NEGATIVE) Urine Urobilinogen (0.2-1.0) EU/dL Ur Leukocyte Esterase (NEGATIVE) Urine RBC (0-5) Urine WBC (0-5) Ur Epithelial Cells Amorphous Sediment Urine Bacteria Urine Mucus 09/21/19 Range/Units 05:00 WBC (4.5-11.0) K/uL RBC (3.30-5.50) M/uL Hgb (12.0-15.0) g/dL Hct (36.0-48.0) % MCV (80-98) fL MCH (27-31) pg MCHC (32-36) % Plt Count (150-400) K/uL Neut % (Auto) (36-66) % Lymph % (Auto) (24-44) % [place] % (Auto) (2-6) % Eos % (Auto) (2-4) % Baso % (Auto) (0-1) % Sodium (140-148) mmol/L Potassium (3.6-5.2) mmol/L Chloride (100-108) mmol/L Carbon Dioxide (21-32) mmol/L Anion Gap (5.0-14.0) mmol/L BUN (7-18) mg/dL Creatinine (0.6-1.0) mg/dL Est Cr Clr Drug Dosing mL/min Estimated GFR (MDRD) (>60) Glucose (74-106) mg/dL Lactic Acid 2.3 H (0.4-2.0) mmol/L Calcium (8.5-10.1) mg/dL Total Bilirubin (0.2-1.0) mg/dL AST (15-37) U/L ALT (12-78) U/L Alkaline Phosphatase (46-116) U/L C-Reactive Protein (0.0-0.3) mg/dL Total Protein (6.4-8.2) g/dL Albumin (3.4-5.0) g/dL Globulin (2.3-3.5) g/dL Albumin/Globulin Ratio (1.2-2.2) Urine Color (YELLOW) Urine Appearance (CLEAR) Urine pH (5.0-8.0) Ur Specific [place] (1.008-1.030) Urine Protein (NEGATIVE) mg/dL Urine Glucose (UA) (NEGATIVE) mg/dL Urine Ketones (NEGATIVE) mg/dL Urine Occult Blood (NEGATIVE) Urine Nitrite (NEGATIVE) Urine Bilirubin (NEGATIVE) Urine Urobilinogen (0.2-1.0) EU/dL Ur Leukocyte Esterase (NEGATIVE) Urine RBC (0-5) Urine WBC (0-5) Ur Epithelial Cells Amorphous Sediment Urine Bacteria Urine Mucus Med Orders - Current: Current Medications Acetaminophen (Tylenol) 650 mg PO Q4H PRN PRN Reason: Pain (Mild 1-3)/fever Last Admin: 09/21/19 08:17 Dose: 650 mg Documented by: Hydrocodone Bitart/Acetaminophen ([place] 325-5 Mg) 1 tab PO Q4H PRN PRN Reason: Pain (moderate 4-6) Albuterol (Proventil Neb Soln) 2.5 mg NEB Q4H PRN PRN Reason: Shortness Of Breath/wheezing Clopidogrel Bisulfate (Plavix) 75 mg PO DAILY [facility] Last Admin: 09/21/19 08:23 Dose: 75 mg Documented by: Docusate Sodium (Colace) 100 mg PO BID PRN PRN Reason: Constipation Famotidine (Pepcid) 20 mg PO DAILY [facility] Last Admin: 09/21/19 08:23 Dose: 20 mg Documented by: Hydrochlorothiazide (Hydrochlorothiazide) 12.5 mg PO DAILY [facility] Last Admin: 09/21/19 08:23 Dose: 12.5 mg Documented by: Promethazine HCl 6.25 mg/ (Sodium Chloride) 50.25 mls @ 200 mls/hr IV Q6H PRN PRN Reason: Nausea/Vomiting Potassium Chloride/Sodium Chloride (Normal Saline With 20 Meq Kcl) 1,000 mls @ 100 mls/hr IV ASDIRECTED [facility] Last Admin: 09/21/19 09:10 Dose: 100 mls/hr Documented by: Potassium Chloride 20 meq/Lidocaine HCl 2 ml/ Sodium Chloride 112 mls @ 56 mls/ hr IV Q2H [facility] Stop: 09/21/19 11:59 Last Admin: 09/21/19 10:10 Dose: 56 mls/hr Documented by: Insulin Human Lispro (Humalog) 0 unit SUBCUT QIDACANDBED [facility]; Protocol Last Admin: 09/21/19 08:29 Dose: 1 unit Documented by: Metoprolol Succinate (Toprol Xl) 25 mg PO DAILY [facility] Last Admin: 09/21/19 08:22 Dose: 25 mg Documented by: Morphine Sulfate (Morphine) 2 mg IVPUSH Q2H PRN PRN Reason: Pain (severe 7-10) Ondansetron HCl (Zofran Odt) 4 mg PO Q6H PRN PRN Reason: Nausea able to take PO Discontinued Medications Acetaminophen (Tylenol) 650 mg PO NOW ONE Stop: 09/20/19 21:36 Last Admin: 09/20/19 22:36 Dose: 650 mg Documented by: Sodium Chloride (Normal Saline) 1,000 mls @ 1,000 mls/hr IV ASDIRECTED [facility] Last Admin: 09/20/19 22:14 Dose: 1,000 mls/hr Documented by: Ceftriaxone Sodium 1 gm/ (Sodium Chloride) 50 mls @ 100 mls/hr IV ONETIME ONE Stop: 09/20/19 21:58 Last Admin: 09/20/19 22:35 Dose: 100 mls/hr Documented by: Sodium Chloride (Normal Saline) 2,000 mls @ 999 mls/hr IV .BOLUS [facility] Last Admin: 09/21/19 01:33 Dose: 999 mls/hr Documented by: Sodium Chloride (Normal Saline) 1,000 mls @ 125 mls/hr IV ASDIRECTED [facility] Potassium Chloride/Sodium Chloride (1/2 Ns With 20 Meq Kcl) 1,000 mls @ 125 mls/hr IV ASDIRECTED [facility] Last Admin: 09/21/19 05:44 Dose: 125 mls/hr Documented by: Potassium Chloride (Klor-Con M20) 40 meq PO ONETIME ONE Stop: 09/21/19 09:01 Last Admin: 09/21/19 09:10 Dose: 40 meq Documented by: - Exam Quality Assessment: No: Supplemental Oxygen General: Alert, Oriented, Cooperative, No Acute Distress Lungs: Normal Respiratory Effort Cardiovascular: Regular Rate, Regular Rhythm GI/Abdominal Exam: Soft, No Distention Extremities: No Pedal Edema Psy/Mental Status: Alert, Normal Affect Sepsis Event Note - Evaluation Sepsis Screening Result: Severe Sepsis Risk - Focused Exam Vital Signs: Vital Signs Temp Temp Pulse Pulse Resp BP BP 09/21/19 10:28 37.3 C 09/21/19 08:47 37.3 C 09/21/19 08:22 94 122/82 09/21/19 08:17 38.8 C H 09/21/19 08:00 38.8 C H 95 16 122/52 L 09/21/19 04:00 38.0 C 84 18 124/60 09/21/19 02:53 38.2 C H 09/21/19 02:23 38.7 C H 09/21/19 00:30 09/21/19 00:23 38.0 C 89 20 124/58 L 09/20/19 22:45 92 20 135/68 Pulse Ox 09/21/19 10:28 09/21/19 08:47 09/21/19 08:22 09/21/19 08:17 09/21/19 08:00 97 09/21/19 04:00 97 09/21/19 02:53 09/21/19 02:23 09/21/19 00:30 97 09/21/19 00:23 97 09/20/19 22:45 96 Date Exam was Performed: 09/21/19 Time Exam was Performed: 15:55 - Problem List Review Problem List Initiated/Reviewed/Updated: Yes - My Orders Last 24 Hours: My Active Orders 09/21/19 08:45 NS + KCl 20mEq/L [Normal Saline with 20 mEq KCl] 1,000 ml IV ASDIRECTED 09/21/19 10:00 Potassium Chloride 20 meq Lidocaine 1% [Xylocaine 1%] 2 ml Sodium Chloride 0.9% [Normal Saline] 100 ml IV Q2H 09/21/19 10:38 Antiembolic Devices [RC] .Routine SCD [Sequential Compression Device] [OM.PC] Routine 09/21/19 10:45 Piperacillin/Tazobactam [Zosyn] 3.375 gm Sodium Chloride 0.9% [Normal Saline] 50 ml IV Q6H 09/21/19 15:00 POTASSIUM,K [CHEM] Routine 09/21/19 21:00 Lactobacillus Rhamnosus GG [Culturelle] 1 cap PO BID 09/22/19 05:00 BASIC METABOLIC PANEL,BMP [CHEM] Timed CBC W/O DIFF,HEMOGRAM [HEME] Timed (1) - Plan Plan:: ASSESSMENT AND PLAN - Acute cystitis without hematuria-infection complicated by sepsis with tachycardia and lactic acidosis. Patient has shown a fair amount of improvement but still having some lower abdominal pain. Cultures are pending. I am going to expand her antibiotic coverage because of recent instrumentation in the urinary tract. -Pip/Tazo -Continue IV fluids -Symptomatic management of pain and nausea -Follow-up cultures Hypokalemia-level did drop overnight following admission. Probably due to poor intake. -40 mEq by mouth this morning -20 mEq IV -IV fluids with potassium -Recheck this afternoon Type 2 diabetes mellitus-sugars acceptable so far. Metformin has been on hold. -Restart metformin this afternoon Maintenance issues - - DVT prophylaxis -mechanical - GI prophylaxis -not indicated - Nutrition -consistent carbohydrates - [place] catheter -not indicated Disposition -I would anticipate discharge home after the hospital stay Edgar Marin M.D.
[2019-09-21] MEDS: Piperacillin/Tazobactam/Dext 3.375 GM in Premix Bag 1 BAG IV SCH ×3 (11:46→22:53)
[2019-09-21] MEDS: metFORMIN 500 MG Tab PO SCH (17:26)
[2019-09-21] MEDS: Lactobacillus Rhamnosus GG (Probiotic) Cap PO SCH (20:41)
[2019-09-22] MEDS: Acetaminophen 325 MG Tab PO PRN (04:13)
[2019-09-22] MEDS: Piperacillin/Tazobactam/Dext 3.375 GM in Premix Bag 1 BAG IV SCH ×2 (04:13→13:20)
[2019-09-22] MEDS: NS + KCl 20mEq/L 1,000 ML IV SCH (07:24)
[2019-09-22] MEDS: Insulin Lispro 100 Unit/ML 3 ML KwikPen SUBCUT SCH ×2 (07:24→13:19)
[2019-09-22] MEDS: Lactobacillus Rhamnosus GG (Probiotic) Cap PO SCH (09:19)
[2019-09-22] MEDS: Clopidogrel 75 MG Tab PO SCH (09:19)
[2019-09-22] MEDS: Famotidine 20 MG Tab PO SCH (09:19)
[2019-09-22] MEDS: Hydrochlorothiazide 12.5 MG Cap PO SCH (09:19)
[2019-09-22] MEDS: metFORMIN 500 MG Tab PO SCH (09:19)
[2019-09-22] MEDS: Metoprolol Succinate 25 MG Tab.ER PO SCH (09:19)
[2019-09-22 13:28] VITALS: BP 113/60; PULSE 78
--- NOTE | 2019-09-22 14:54 | PCM.DCSUM1 ---
Discharge Summary - Hospital Course Brief History: 64-year-old female with history of type 2 diabetes mellitus, medullary sponge kidney with recurrent kidney stones and recent stone removal who presented with fever, abdominal pain and weakness. She was admitted for management of a urinary tract infection with sepsis. Diagnosis: Stroke: No - Discharge Data Discharge Date: 09/22/19 Discharge Disposition: Home, Self-Care 01 Condition: Good - Referral to Home Health Primary Care Physician: PCP None - Patient Summary/Data Labs Pending at D/C: Final results of urine culture Hospital Course: Drea presented to the emergency room with fever, abdominal pain and weakness. Work-up in the emergency room was suggestive of a urinary tract infection with sepsis with tachycardia and lactic acidosis. She received a dose of ceftriaxone as well as aggressive IV fluids after cultures were obtained. She was admitted to the hospital for further management. A CT scan of the abdomen and pelvis did not show any acute obstructing stones. Patient did report that she had recently had some stones removed. Over the first 24 hours we saw some mild improvement with less abdominal pain. Her fever curve had improved but she continued to have some low-grade fevers. Over the next 24 hours we saw more dramatic improvement. Her fevers resolved. Symptomatically she was much better with resolution of her abdominal pain. She has not had any nausea. Her laboratory studies have all been stable and essentially normal. Her urine culture is growing a gram-negative antonio but final identification is still pending. She feels well and is interested in going home at this point. I am going to send her home with ciprofloxacin and will contact her tomorrow if she grows out a bacteria that is resistant to this. She did have recent instrumentation so I am electing to cover for Pseudomonas. She is stable and doing well and safe for discharge at this time. - Patient Instructions Diet: Diabetic Diet Activity: As Tolerated Driving: May Drive Today Showering/Bathing: May Shower Notify Provider of: Fever, Increased Pain Other/Special Instructions: 1. You were in the hospital for management of a urinary tract infection caused by a bacteria that has yet to be identified. Your condition has been improving with antibiotic therapy. I do recommend ongoing antibiotic therapy with ciprofloxacin. Please take 500 mg twice daily. Your first dose outside the hospital will be due tonight. I will contact you tomorrow if the urine culture returns with a resistant organism that will require a different antibiotic. 2. Continue your usual home medications as previously prescribed. - Discharge Plan *PRESCRIPTION DRUG MONITORING PROGRAM REVIEWED*: Not Applicable *COPY OF PRESCRIPTION DRUG MONITORING REPORT IN PATIENT WADE: Not Applicable Prescriptions/Med Rec: Ciprofloxacin [Ciprofloxacin HCl] 500 mg PO BID #7 tab Home Medications: Home Meds Clopidogrel [Plavix] 75 mg PO DAILY 09/25/16 [History] Metoprolol Tartrate 25 mg PO BID 09/25/16 [History] metFORMIN HCl [Metformin HCl] 500 mg PO BID 09/25/16 [History] Dulaglutide [Trulicity] 0 mg SQ WEEKLY 09/20/19 [History] Famotidine 10 mg PO BID 09/20/19 [History] hydroCHLOROthiazide [Hydrochlorothiazide] 12.5 mg PO BID 09/20/19 [History] Ciprofloxacin [Ciprofloxacin HCl] 500 mg PO BID #7 tab 09/22/19 [Rx] Oxygen Therapy Mode: Room Air Patient Handouts: Urinary Tract Infection, Adult, Ciprofloxacin tablets Referrals: PCP,None [Primary Care Provider] - (f/u if your symptoms do not continue to get better or if they get worse) - Discharge Summary/Plan Comment DC Time >30 min.: No - Patient Data Vitals - Most Recent: Last Vital Signs Temp 35.5 C L 09/22/19 12:00 Pulse 78 09/22/19 12:00 Resp 18 09/22/19 12:00 BP 113/60 09/22/19 12:00 Pulse Ox 98 09/22/19 12:00 Weight - Most Recent: 82.6 kg I&O - Last 24 hours: Intake & Output 09/21/19 09/22/19 09/22/19 22:59 06:59 14:59 Intake Total 1297 1510 250 Output Total 1300 900 900 Balance -3 803 -904 Lab Results - Last 24 hrs: Laboratory Results - last 24 hr 09/21/19 09/22/19 09/22/19 Range/Units 15:10 04:05 04:05 WBC 6.6 (4.5-11.0) K/uL RBC 4.06 (3.30-5.50) M/uL Hgb 12.5 (12.0-15.0) g/dL Hct 38.4 (36.0-48.0) % MCV 95 (80-98) fL MCH 31 (27-31) pg MCHC 33 (32-36) % Plt Count 152 (150-400) K/uL Sodium 144 (140-148) mmol/L Potassium 3.8 3.8 (3.6-5.2) mmol/L Chloride 108 (100-108) mmol/L Carbon Dioxide 26 (21-32) mmol/L Anion Gap 10.5 (5.0-14.0) mmol/L BUN 13 (7-18) mg/dL Creatinine 1.2 H (0.6-1.0) mg/dL Est Cr Clr Drug Dosing 36.16 mL/min Estimated GFR (MDRD) 45 L (>60) Glucose 96 (74-106) mg/dL POC Glucose (74-106) MG/DL Calcium 8.1 L (8.5-10.1) mg/dL 09/22/19 Range/Units 11:30 WBC (4.5-11.0) K/uL RBC (3.30-5.50) M/uL Hgb (12.0-15.0) g/dL Hct (36.0-48.0) % MCV (80-98) fL MCH (27-31) pg MCHC (32-36) % Plt Count (150-400) K/uL Sodium (140-148) mmol/L Potassium (3.6-5.2) mmol/L Chloride (100-108) mmol/L Carbon Dioxide (21-32) mmol/L Anion Gap (5.0-14.0) mmol/L BUN (7-18) mg/dL Creatinine (0.6-1.0) mg/dL Est Cr Clr Drug Dosing mL/min Estimated GFR (MDRD) (>60) Glucose (74-106) mg/dL POC Glucose 207 H (74-106) MG/DL Calcium (8.5-10.1) mg/dL MARY Results - Last 24 hrs: Microbiology 09/20/19 21:36 Urine Culture - Preliminary Urine, Bladder 09/20/19 21:35 Aerobic Blood Culture - Preliminary Blood - Arm, Right NO GROWTH AFTER 1 DAY Anaerobic Blood Culture - Preliminary NO GROWTH AFTER 1 DAY 09/20/19 21:47 Aerobic Blood Culture - Preliminary Blood - Arm, Right NO GROWTH AFTER 1 DAY Anaerobic Blood Culture - Preliminary NO GROWTH AFTER 1 DAY Med Orders - Current: Current Medications Acetaminophen (Tylenol) 650 mg PO Q4H PRN PRN Reason: Pain (Mild 1-3)/fever Last Admin: 09/22/19 04:13 Dose: 650 mg Documented by: Hydrocodone Bitart/Acetaminophen ([place] 325-5 Mg) 1 tab PO Q4H PRN PRN Reason: Pain (moderate 4-6) Albuterol (Proventil Neb Soln) 2.5 mg NEB Q4H PRN PRN Reason: Shortness Of Breath/wheezing Clopidogrel Bisulfate (Plavix) 75 mg PO DAILY [facility] Last Admin: 09/22/19 09:19 Dose: 75 mg Documented by: Docusate Sodium (Colace) 100 mg PO BID PRN PRN Reason: Constipation Famotidine (Pepcid) 20 mg PO DAILY [facility] Last Admin: 09/22/19 09:19 Dose: 20 mg Documented by: Hydrochlorothiazide (Hydrochlorothiazide) 12.5 mg PO DAILY [facility] [place] Last Admin: 09/22/19 09:19 Dose: 12.5 mg Documented by: Promethazine HCl 6.25 mg/ (Sodium Chloride) 50.25 mls @ 200 mls/hr IV Q6H PRN PRN Reason: Nausea/Vomiting Potassium Chloride/Sodium Chloride (Normal Saline With 20 Meq Kcl) 1,000 mls @ 100 mls/hr IV ASDIRECTED [facility] Last Admin: 09/22/19 07:24 Dose: 100 mls/hr Documented by: Piperacillin/Tazobactam/ ([place] 3.375 gm/ Premix) 50 mls @ 100 mls/hr IV Q6H [facility] Last Admin: 09/22/19 13:20 Dose: 100 mls/hr Documented by: Insulin Human Lispro (Humalog) 0 unit SUBCUT QIDACANDBED [facility]; Protocol Last Admin: 09/22/19 13:19 Dose: 2 unit Documented by: Lactobacillus Rhamnosus (Culturelle) 1 cap PO BID [facility] Last Admin: 09/22/19 09:19 Dose: 1 cap Documented by: Metformin HCl (Glucophage) 500 mg PO BIDAC [facility] Last Admin: 09/22/19 09:19 Dose: 500 mg Documented by: Metoprolol Succinate (Toprol Xl) 25 mg PO DAILY [facility] Last Admin: 09/22/19 09:19 Dose: 25 mg Documented by: Morphine Sulfate (Morphine) 2 mg IVPUSH Q2H PRN PRN Reason: Pain (severe 7-10) Ondansetron HCl (Zofran Odt) 4 mg PO Q6H PRN PRN Reason: Nausea able to take PO Discontinued Medications Acetaminophen (Tylenol) 650 mg PO NOW ONE Stop: 09/20/19 21:36 Last Admin: 09/20/19 22:36 Dose: 650 mg Documented by: Sodium Chloride (Normal Saline) 1,000 mls @ 1,000 mls/hr IV ASDIRECTED [facility] Last Admin: 09/20/19 22:14 Dose: 1,000 mls/hr Documented by: Ceftriaxone Sodium 1 gm/ (Sodium Chloride) 50 mls @ 100 mls/hr IV ONETIME ONE Stop: 09/20/19 21:58 Last Admin: 09/20/19 22:35 Dose: 100 mls/hr Documented by: Sodium Chloride (Normal Saline) 2,000 mls @ 999 mls/hr IV .BOLUS [facility] Last Admin: 09/21/19 01:33 Dose: 999 mls/hr Documented by: Sodium Chloride (Normal Saline) 1,000 mls @ 125 mls/hr IV ASDIRECTED [facility] Potassium Chloride/Sodium Chloride (1/2 Ns With 20 Meq Kcl) 1,000 mls @ 125 mls/hr IV ASDIRECTED [facility] Last Admin: 09/21/19 05:44 Dose: 125 mls/hr Documented by: Potassium Chloride 20 meq/Lidocaine HCl 2 ml/ Sodium Chloride 112 mls @ 56 mls/hr IV Q2H [facility] Stop: 09/21/19 11:59 Last Admin: 09/21/19 10:10 Dose: 56 mls/hr Documented by: Potassium Chloride (Klor-Con M20) 40 meq PO ONETIME ONE Stop: 09/21/19 09:01 Last Admin: 09/21/19 09:10 Dose: 40 meq Documented by: Potassium Chloride (Klor-Con M20) 20 meq PO ONETIME ONE Stop: 09/21/19 16:01 Last Admin: 09/21/19 17:27 Dose: 20 meq Documented by:
== END 2019-09-22 16:33 | disposition home or self-care (01) | DRG 872 ==
LOC: JP.ED 19:35 → JP.ICU 23:27 → JP.MS 09-21 15:17
PROVIDERS: ADMIT Family Medicine; ATTEND Internal Medicine
DX: N39.0 Urinary tract infection, site not specified (principal); A41.9 Sepsis, unspecified organism; N17.9 Acute kidney failure, unspecified; I25.10 Atherosclerotic heart disease of native coronary artery without angina pectoris; Z87.442 Personal history of urinary calculi; K21.9 Gastro-esophageal reflux disease without esophagitis; E11.9 Type 2 diabetes mellitus without complications; E66.9 Obesity, unspecified; Z95.1 Presence of aortocoronary bypass graft; Z90.49 Acquired absence of other specified parts of digestive tract; Z90.710 Acquired absence of both cervix and uterus; E04.2 Nontoxic multinodular goiter; E78.00 Pure hypercholesterolemia, unspecified; I10 Essential (primary) hypertension; Z79.02 Long term (current) use of antithrombotics/antiplatelets; M81.0 Age-related osteoporosis without current pathological fracture; E87.6 Hypokalemia; Z79.84 Long term (current) use of oral hypoglycemic drugs; Z79.899 Other long term (current) drug therapy; Z88.6 Allergy status to analgesic agent
CPT/HCPCS: 36415; 71045 ×2; 74176; 80053; 81001; 83605; 85025; 86140; 87040 ×2; 87086; 93005; 96365; 99285; A9270; J0696; J7030; J7050; 80048; 82962; 84132; 85027; 87088; 87186; 93010; 99238; J1815; J2001; J2543; J3480